=== PATIENT | female | born 1950 | race Caucasian/White ===

== ENCOUNTER 2025-06-07 22:43 | Observation (INO) | payer MEDICARE, OTHER, SELFPAY ==
[2025-06-07 19:58] VITALS: BP 90/57
[2025-06-07 20:23] LABS: Hematocrit 35.1 % (37.0-47.0); Hemoglobin 11.9 g/dL (12.0-16.0); Mean Corp Hgb Conc. 33.9 g/dL (33.0-37.0); Mean Corpuscular Volume 95.1 fL (81.0-99.0); Nucleated Red Blood Cells % 0 %; Platelet Count 242 10^3/uL (130-400); Red Cell Dist. Width 14.2 % (11.5-14.5)
[2025-06-07 20:33] LABS: INR 1.34; PT 16.8 Sec (11.4-14.6)
[2025-06-07 20:34] LABS: APTT 30.9 Sec (23.4-35.0)
[2025-06-07 20:44] LABS: ALT (SGPT) 36 U/L (0-35); AST (SGOT) 64 U/L (14-36); Albumin 4.0 g/dl (3.5-5.0); Alkaline Phosphatase 71 U/L (38-126); Blood Urea Nitrogen 20 mg/dl (7-17); Calcium 8.8 mg/dl (8.4-10.2); Carbon Dioxide 24 mmol/L (22-30); Chloride 106 mmol/L (98-107); Glucose 172 mg/dl (70-99); Potassium 4.2 mmol/L (3.5-5.1); Sodium 136 mmol/L (135-145); Total Protein 6.9 g/dl (6.3-8.2); eGFR 47.21
[2025-06-07 20:52] VITALS: BP 114/76
[2025-06-07 21:00] VITALS: BP 101/75
[2025-06-07 21:01] LABS: Troponin I 7.850 ng/ml
--- NOTE | 2025-06-07 21:12 | ED.GENMED ---
History of Present Illness
General
Chief Complaint: Heart Rate Problem
Time Seen by Provider: 06/07/25 21:01
History of Present Illness
History of Present Illness:
Patient is a 75-year-old female with a history of atrial fibrillation status post ablation yesterday who presents to the emergency department with tachycardia and palpitations. Symptoms have resolved at the time of my evaluation. Patient states
she is feeling better and denies any symptoms currently.
Phy Exam
Physical Exam
Physical Exam:
GENERAL APPEARANCE: NAD, well developed/ well nourished
EYES lids/conjunctiva normal
EARS/NOSE/THROAT Mucous membranes moist, uvula midline without oral pharyngeal erythema, exudate or swelling
HEAD/NECK normocephalic atraumatic, neck is supple.
RESPIRATORY respiratory effort normal, speaks in full sentences, no accessory muscle use. Lungs clear to auscultation without rhonchi, wheezes, rales
CARDIAC Regular rate and rhythm, no edema.
ABDOMINAL Soft, ND/NT.
MUSCLES/EXTREMITIES No abnormal range of motion, no swelling.
SKIN Warm, pink and dry. No rashes
NEUROLOGICAL Speech is clear and appropriate. Normal level of consciousness. 5/5 strength in all extremities.
PSYCH Normal mood and affect. Judgement/competence is appropriate
Course
Orders/Labs/Results
Orders:
Orders
06/07/25 19:56
EKG [Electrocardiogram (*1)] Urgent
Reason for Study: Chest Pain
EKG- Treatment ONCE
06/07/25 20:14
Complete Blood Count/With Diff Urgent
Comprehensive Metabolic Panel Urgent
PT/INR [Prothrombin Time] Urgent
Is patient on Coumadin/Warfarin?: No
Comment: xarelto
PTT Urgent
Troponin I Urgent
06/07/25 21:37
CR Chest - 2 Views Urgent
Comment:
Reason For Exam: cp
06/07/25 22:34
Admit/Transfer Patient As Directed
Co-Sign Provider:
Level of Care: Observation services
Assign to:: Telemetry
Physician / Group: evon burr
Diagnosis: afib with rvr, hypotension renal insuff, transaminitis
Reason for Telemetry: Arrhythmia
Date to Stop Telemetry: 06/10/25
Time to Stop Telemetry: 11:00
Reason for Hospitalization: afib with rvr, hypotension renal insuff, transaminitis
Code Status As Directed
Resuscitation Status: Full Code
06/07/25 22:36
PRN Pain Medication Management As Directed
May give lesser potent ordered pain med per pt: Yes
preference::
Protocol:: Medication orders for pain may be administered in a
manner that supports deferring to patient preference
when the pt is:
- Requesting an ordered lesser potent pain medication.
Least to most potent pain medications are defined
as: acetaminophen < NSAID < tramadol < opioids
(morphine, oxycodone, hydromorphone).
- Requesting a lesser dose of the same medication IF
ORDERED.
- Requesting a less intrusive route of administration
if both routes are prescribed by the provider (PO <
IV).
06/07/25 22:44
CARDIOLOGY CONSULT Routine
Consulting Provider: Louis Moreno
Was physician already notified: No
Reason for consult: afib s/p ablation [place]
Consult Notification Routine
Specialty to Notify: Cardiology
06/10/25 11:00
DC Protocol for Telemetry ONCE
Abnormal Lab Results
06/07/25
20:14
WBC 11.0 H 10^3/uL
(4.8-10.8)
RBC 3.69 L 10^6/uL
(4.20-5.40)
Hgb 11.9 L g/dL
(12.0-16.0)
Hct 35.1 L %
(37.0-47.0)
MCH 32.2 H pg
(27.0-31.0)
MPV 10.9 H fL
(7.4-10.4)
Abs Immat Gran (auto) 0.1 H 10^3/uL
(0-0.05)
Absolute Neuts (auto) 8.2 H 10^3/uL
(1.4-6.5)
Absolute Monos (auto) 0.8 H 10^3/uL
(0.1-0.6)
Lymphocytes % 17.7 L %
(20.5-51.1)
PT 16.8 H Sec
(11.4-14.6)
BUN 20 H mg/dl
(7-17)
Creatinine 1.2 H mg/dL
(0.6-1.0)
Glucose 172 H mg/dl
(70-99)
Total Bilirubin 1.4 H mg/dl
(0.2-1.3)
AST 64 H U/L
(14-36)
ALT 36 H U/L
(0-35)
Troponin I 7.850 H* ng/ml
06/07/25 20:14
06/07/25 20:14
Vital Signs
Initial and Last Documented VS:
Initial Vital Signs
Temp Pulse Resp BP Pulse Ox
98 F 163 16 90/57 95
06/07/25 19:58 06/07/25 19:58 06/07/25 19:58 06/07/25 19:58 06/07/25 19:58
Last Documented Vital Signs
Temp Pulse Resp BP Pulse Ox
98 F 77 24 114/76 95
06/07/25 19:58 06/07/25 20:53 06/07/25 20:53 06/07/25 20:52 06/07/25 21:12
*Pulse Oximetry
SaO2: 95
Oxygen Mode of Delivery: Room air
Patient hypoxic: no
*Critical Care Note
Total Time (30-74mins, 75-104mins- exclusive of procedures): Not Applicable
ED Attending Note
ED Attending Note
ED Attending Note:
Discussed with Dr. Dooley from [facility] commercial center manager. Patient with recurrence of afib which is frequently seen after ablation. She has now converted to sinus rhythm. however, her troponin is grossly elevated to 7.850. She has not ischemic
chest pain currenlt.y She is on xarelto. This elevation could be 2/2 to instrumentation vs rate related demand. Dr. Dooley recommends trending troponin, repeat echo. Will keep for observation
-
Portions of this chart may have been created with voice recognition software.� Occasional wrong word or��sound alike� substitutions may have occurred due to the inherent limitations of voice recognition software.
Discharge Plan
Departure
Patient Disposition: Admit
Date of Disposition: 06/07/25
Time of Disposition: 21:42
Presentation/result/management discussed w/ accepting MD/DO: Hospitalist
Discharge Problem:
Atrial fibrillation, Elevated troponin
Interventions
Interventions:
*Risk Screen - Suicide Last Done: 06/07/25 20:04
*General Assessment Last Done: 06/07/25 21:10
*Neglect/Abuse Screening Last Done: 06/07/25 20:04
*ED- Fall Risk Assessment Last Done: 06/07/25 21:10
*ED COVID-19 Vaccine History Last Done: 06/07/25 20:50
*ED Influenza Vaccine History Last Done: 06/07/25 20:50
ED- Cardiac Assessment Last Done: 06/07/25 21:57
ED- Pulmonary Assessment Last Done: 06/07/25 21:57
--- NOTE | 2025-06-07 22:14 | HPS.HSE ---
Addendum entered and electronically signed by Krupa Murray MD 06/07/25 22:48:
This is an addendum to H&P written by Kay Israel on 06/07/2025. �Patient seen and examined independently with MEDICAL LAB TECHNICIAN.
75-year-old female past medical history of atrial fibrillation status post ablation yesterday on Xarelto, cardiomyopathy with normal ejection, restrictive lung disease, hypertension, prediabetes, glucoma, presenting with tachycardia and palpitations
and fatigue. �Patient underwent ablation at [facility] yesterday. �She typically gets hypotensive with atrial fibrillation. �She was given IV fluids before the procedure and antihypertensive medications and metoprolol were held. �After
the ablation she was told to take as needed Lasix.
She had chest pain before the ablation. �No chest pain currently.
Vital signs show initial blood pressure 90/57. �Heart rate of 163. �EKG showed atrial fibrillation.
Labs showed troponin 7.8. �Mild transaminitis. �Creatinine 1.2. �Leukocytosis of 11. �Hemoglobin 11.9.
Patient with atrial fibrillation with RVR after ablation for atrial fibrillation at [facility] yesterday. �Initially hypotensive but spontaneously resolved. �Troponin elevation likely secondary to recent ablation. �Trend troponins. �Check
echocardiogram. �Patient received Xarelto dose at 7 PM today. �Hold further Xarelto in case further interventions are necessary and heparin drip is required. �Cardiology consulted.
Patient with ELOY likely secondary to contrast received during ablation. Hold Spironolactone and Losartan.
Original Note:
Family Physician
-
Family Physician:
Chief Complaint
-
Fatigue, elevated heart rate
History of Present Illness
75-year-old Israeli-speaking female with her son present at bedside stating this evening she felt tired with heart racing around 4 PM she took her heart rate which was in the 160s and blood pressure was 90/60. Her son states symptoms persisted for
2 hours. He brought her to ER for evaluation on arrival heart rate was A-fib with RVR 137 bpm but she self converted. He denies any current chest pain. He states she had chest pain before her A-fib ablation. Her son reports when she is typically
in A-fib she becomes hypotensive when not in A-fib blood pressure normally around 138 systolic. She was given IV fluids yesterday after procedure given possible IV contrast for ablation. She was also given prescription for Lasix 20 mg if 3 to 5
pound weight gain.
Past medical history hypertension hyperlipidemia prediabetes A-fib, cardiomyopathy, glaucoma.
Medical History
Past Medical History
Past Medical History: Reports Other
Additional Past Medical History:
hypertension
hyperlipidemia
prediabetes
A-fib
cardiomyopathy
glaucoma
Past Surgical History: Reports Other
Additional Past Surgical History:
A-fib ablation 06/06/[address]25 [facility] [address]. Alas
Bladder sling repair 2017 for bladder prolapse
Laser glaucoma surgery
Social History
Tobacco: Non-smoker
Alcohol: None
Drug: None
Personal: Single
Living: With Family
Employment: Retired
Family History
Family History: Not pertinent
Allergies / Home Medications
Allergies reflects when Allergies were last updated in [facility].
Home Medications with original date entered in [facility]
Allergy/Medication List:
Allergies
Allergy/AdvReac Type Severity Reaction Status Date / Time
No Known Allergies Allergy Unverified 06/07/25 20:05
Home Medications
Oyster Shell Calcium 500 500 mg PO DAILY 06/07/25
albuterol sulfate 90 mcg/actuation aerosol inhaler inhalation 06/07/25
amlodipine 5 mg tablet 5 mg PO DAILY 06/07/25
furosemide 20 mg tablet 20 mg PO DIRECTED 06/07/25
metoprolol succinate 50 mg tablet,extended release 24 hr 50 mg PO DAILY 06/07/25
rivaroxaban 20 mg tablet (Xarelto) 20 mg PO DAILY@19 06/07/25
rosuvastatin 10 mg tablet 10 mg PO DAILY 06/07/25
spironolactone 25 mg tablet 25 mg PO DAILY 06/07/25
Review of Systems
-
History Source: Patient and Family (Son at bedside translating Israeli)
A 12 point ROS was completed and negative except as noted: Yes
Constitutional: Reports Fatigue; Denies Fever or Chills
EENT: Denies Sore Throat or Runny Nose
Respiratory: Denies Cough or Trouble Breathing
Cardiac: Reports Palpitations; Denies Chest Pain or Diaphoresis
Abdomen/GI: Denies Abdominal Pain, Nausea, Vomiting, Diarrhea, Constipated or Bloody Stools
: Denies Dysuria, Frequency, Flank Pain, Incontinence, Difficulty Voiding or Urgency
Musculoskeletal: Denies Joint Pain or Edema
Skin: Denies Itching or Rash
Neurological: Denies Dizzy or Headache
Endocrine: Reports No Symptoms
Hematologic/Lymphatic: Reports No Symptoms
Psych: Reports Calm
Physical Exam
Vital Signs
Vital Signs
Temp Pulse Resp BP Pulse Ox
98 F 77 24 114/76 95
06/07/25 19:58 06/07/25 20:53 06/07/25 20:53 06/07/25 20:52 06/07/25 21:12
Physical Exam
General: Conversant; No Fever or Chills
HEENT: NormoCephalic, Anicteric, Moist mucous membranes, PERRLA, [place] Conjunctivae and No Ptosis
Respiratory: Clear; No Wheezes, Rales or Rhonchi
Cardiac: S1/S2 and Regular Rhythm; No Murmur, Rub, Gallop or Peripheral Edema
GI: Soft, Non Tender, Non Distended, Normal Bowel Sounds and No Hepatosplenomegaly
Rectal: Deferred by Provider
Genito-urinary: Deferred by me
Musculoskeletal: No Clubbing, No Cyanosis and No Edema
Skin: Warm and Dry; No Rash
Neuro: AO x 3 (Patient speaking Israeli to son who is translating), No Motor Deficits, Cranial Nerves Intact and No Sensory Deficits; No Slurred Speech, Facial Droop, Tremors or Sedated
Psych: Calm
Laboratory Results
-
06/07/25 20:14
06/07/25 20:14
Laboratory Results
PT 16.8 Sec (11.4-14.6) H 06/07/25 20:14
INR 1.34 06/07/25 20:14
APTT 30.9 Sec (23.4-35.0) 06/07/25 20:14
Total Bilirubin 1.4 mg/dl (0.2-1.3) H 06/07/25 20:14
AST 64 U/L (14-36) H 06/07/25 20:14
ALT 36 U/L (0-35) H 06/07/25 20:14
Alkaline Phosphatase 71 U/L (38-126) 06/07/25 20:14
Troponin I 7.850 ng/ml H* 06/07/25 20:14
Impression/Plan
-
Impression/plan:
Admit to telemetry
#A-fib with RVR self corrected/history A-fib
History of cardiac ablation yesterday 06/06/[address]25 [facility] [address] Alicea
- Monitor on telemetry
-Patient on Xarelto took at 7 PM this evening 06/07/2025 will hold further Xarelto in case of repeat arrhythmia requiring needed procedure
-Check 2D echo
EKG A-fib 136 bpm
#Elevated troponin likely secondary to A-fib ablation yesterday 06/06/2025
Troponin 7.850 will trend
-Check 2D echo
#Reported cardiomyopathy
Obtain records from [facility]
#Acute leukocytosis likely reactive due to ablation yesterday
Afebrile, no shift
#Renal insufficiency
Creat 1.2 GFR 47.2
Follow BMP
-Hold losartan, spironolactone
#Transaminitis unclear
- Follow CMP
#Nonobstructive CAD
#Prediabetes
Blood sugar 172 check HgbA1c
#Normocytic anemia
Hgb 11.9, MCV 95.1
#Reactive airway disease
Continue albuterol as needed
#HTN
-Continue metoprolol ER 50 mg twice daily hold for SBP<110
-Hold losartan 100 mg daily
#HLD
Continue Crestor 10 mg daily
#Glaucoma
History of laser procedure
#History of bladder sling 2018 for bladder prolapse
DVT prophylaxis
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
Full code
[2025-06-07 23:09] VITALS: BP 104/69
[2025-06-08] VITALS: BP 106/66
[2025-06-08 01:00] VITALS: BP 111/73
--- NOTE | 2025-06-08 01:20 | PTCARENOTE ---
pt arrived from ED @ 0110; pt AOX3 and ambulated safely to the bed; pt Gabonese speaking - trash man services utilized; bed locked and in lowest position; call lund within reach; care ongoing.
[2025-06-08 01:21] VITALS: BP 111/73
[2025-06-08 01:30] VITALS: BMI 33.9
[2025-06-08 03:00] VITALS: BP 106/66
[2025-06-08 03:08] LABS: Troponin I 6.430 ng/ml
[2025-06-08 06:00] VITALS: BMI 33.7
[2025-06-08 06:21] LABS: Hematocrit 32.5 % (37.0-47.0); Hemoglobin 10.5 g/dL (12.0-16.0); Mean Corp Hgb Conc. 32.3 g/dL (33.0-37.0); Mean Corpuscular Volume 95.6 fL (81.0-99.0); Nucleated Red Blood Cells % 0 %; Platelet Count 208 10^3/uL (130-400); Red Cell Dist. Width 14.4 % (11.5-14.5)
[2025-06-08 06:39] LABS: ALT (SGPT) 34 U/L (0-35); AST (SGOT) 47 U/L (14-36); Albumin 3.8 g/dl (3.5-5.0); Alkaline Phosphatase 67 U/L (38-126); Blood Urea Nitrogen 17 mg/dl (7-17); Calcium 8.6 mg/dl (8.4-10.2); Carbon Dioxide 26 mmol/L (22-30); Chloride 108 mmol/L (98-107); Estimated Creatinine Clearance 58 ml/min; Glucose 114 mg/dl (70-99); Potassium 4.3 mmol/L (3.5-5.1); Sodium 137 mmol/L (135-145); Total Protein 6.2 g/dl (6.3-8.2); eGFR > 60.00
[2025-06-08 06:42] LABS: Troponin I 6.050 ng/ml
[2025-06-08 07:35] VITALS: BP 118/69
--- NOTE | 2025-06-08 07:36 | CON.CAR ---
Addendum entered and electronically signed by Paco Curtis MD 06/08/25 11:38:
I saw and examined the patient.
The Network And Threat Support Specialist's note was reviewed and I agree with the note.
Comment: Briefly, 75-year-old woman past medical history of paroxysmal atrial fibrillation who underwent PVI at [facility] earlier this week 06/06/2025. She developed rapid symptomatic atrial fibrillation 06/07/2025 and presented to
[facility] emergency department for evaluation.
Patient spontaneously converted from rapid A-fib to normal sinus rhythm and is currently maintaining sinus rhythm on review of telemetry
Would continue metoprolol for rate control
Xarelto for risk reduction of cardiac stroke
Of note troponin was elevated on admission and down trended 7.9�> 6.4�> 6.1
ECG without acute ischemic changes
Suspect nonischemic myocardial injury troponin elevation due to recent ablation
Not reporting any chest discomfort this morning
Plan to check transthoracic echocardiogram, if this is unremarkable would defer further workup to the outpatient setting with her primary heel stiffener
Rest per Idania Lopez
Original Note:
Consultation
Consultation Request
Date/Time Consultation Requested: 06/07/2025 at 2244
Date/Time Consultation Performed: 06/08/2025 at 0748
Requesting Provider: Dr. Jamil
Performing Provider: Dr. Porter
Reason for Consultation: Chest pain, rapid A-fib
Medical History
-
History of Present Illness:
Patient came to [facility] ER last night with chest pain and palpitations and was admitted with rapid A-fib and elevated troponin, cardiology is now consulted. I talked to the patient using language line strand and binder controller services and then separately I called
her son-in-law, Trey, who is an DYE HOUSE SUPERVISOR at the [employer] and we talked for 10 minutes and 18 seconds this morning. Patient was initially diagnosed with A-fib 06/2024 and had successful CV at that time and according to patient and son-in-law there
was no recurrence of A-fib until last month, 05/2025. Patient had another successful CV, but recurred with A-fib 3 days later and was referred for ablation that was performed on 06/06/2025. Ablation was uncomplicated and patient was discharged to
home on the same day, patient has been staying with family instead of on her own and family lives closer to [facility] and so patient came here yesterday when she had palpitations and chest pain. Patient son-in-law could palpate a rapid and irregular HR,
but initial ECG in the ER was SR. Patient then recurred with rapid A-fib that was captured on ECG and again spontaneously converted to SR. I reconciled the med list with the patient's son-in-law by phone and she is actually taking Toprol-XL 50 mg
BID and not daily as it is listed. Son-in-law also reports that patient had recurrence of A-fib that seem to happen around the time of the Toprol-XL dose being lowered to 25 mg daily. Patient has had BP medication adjustments through PCP as well
including most recently the addition of amlodipine and then following the development of LE edema spironolactone was added. BP is now 106/66.
PMH:
Paroxysmal A-fib with RVR
s/p successful CV 06/2024
s/p successful CV, but followed by rapid recurrence of A-fib 05/2025
s/p PVI 06/06/2025
Chronic Xarelto OAC
HTN
Past Medical History
Past Medical History: Other (in HPI)
Past Surgical History: Cardiac (PVI at [facility] 06/06/25,) and Urological (bladder sling)
Social History
Tobacco: Non-Smoker
Alcohol: None
Drug: None
Living: Alone (Usually lives independently, but currently staying with family while she recovers from PVI)
Family History
Family History: Diabetes
Allergies / Home Medications
Allergy/AdvReac Type Severity Reaction Status Date / Time
No Known Allergies Allergy Unverified 06/07/25 20:05
�Medication �Instructions �Recorded �Confirmed �Type
Oyster Shell Calcium 500 500 mg PO DAILY 06/07/25 06/07/25 History
albuterol sulfate 90 mcg/actuation inhalation 06/07/25 History
aerosol inhaler
amlodipine 5 mg tablet 5 mg PO DAILY 06/07/25 06/07/25 History
furosemide 20 mg tablet 20 mg PO DIRECTED 06/07/25 06/07/25 History
losartan 100 mg tablet 100 mg PO DAILY 06/07/25 06/07/25 History
metoprolol succinate 50 mg 50 mg PO DAILY 06/07/25 06/07/25 History
tablet,extended release 24 hr
rivaroxaban 20 mg tablet (Xarelto) 20 mg PO DAILY@19 06/07/25 06/07/25 History
rosuvastatin 10 mg tablet 10 mg PO DAILY 06/07/25 06/07/25 History
spironolactone 25 mg tablet 25 mg PO DAILY 06/07/25 06/07/25 History
Review of Systems
-
History Source: Patient and Family (Son-in-law, Trey, by phone)
All other systems: Negative unless noted
Physical Exam
Vital Signs
Temp Pulse Resp BP Pulse Ox
98.5 F 62 18 106/66 96
06/08/25 03:00 06/08/25 03:00 06/08/25 03:00 06/08/25 03:00 06/08/25 03:00
GEN: NAD. AAOx3 using [employer] services
HEENT: EOMI, MMM
LUNGS: RA. CTA B/L, no wheeze
CV: SR on tele. Reg, S1/S2, no murmur
ABD: ND
EXT: No edema B/L LE
NEURO: Gross non-focal
SKIN: No rash
Lab Results
06/08/25 06:04
06/08/25 06:04
Troponin I 6.050 ng/ml H* 06/08/25 06:04
Impression / Plan
-
PCP: Craig Garcia
Director Of Design: Dr. Alicea, but transitioning to Dr. Almanza at [place]
Impression:
Admitted with rapid Afib and chest pain 06/07/25
Chest pain
Elevated troponin
Paroxysmal A-fib with RVR
s/p successful CV 06/2024
s/p successful CV, but followed by rapid recurrence of A-fib 05/2025
s/p PVI 06/06/2025
Chronic Xarelto OAC
HTN
Echo 06/08/2025: Study pending
Plan:
-Patient came to [facility] ER last night with chest pain and palpitations and was admitted with rapid A-fib and elevated troponin, cardiology is now consulted. I talked to the patient using language line strand and binder controller services and then separately I called
her son-in-law, Trey, who is an DYE HOUSE SUPERVISOR at the [place] system and we talked for 10 minutes and 18 seconds this morning. Patient was initially diagnosed with A-fib 06/2024 and had successful CV at that time and according to patient and son-in-law there
was no recurrence of A-fib until last month, 05/2025. Patient had another successful CV, but recurred with A-fib 3 days later and was referred for ablation that was performed on 06/06/2025. Ablation was uncomplicated and patient was discharged to
home on the same day, patient has been staying with family instead of on her own and family lives closer to [facility] and so patient came here yesterday when she had palpitations and chest pain. Patient son-in-law could palpate a rapid and irregular HR,
but initial ECG in the ER was SR. Patient then recurred with rapid A-fib that was captured on ECG and again spontaneously converted to SR. I reconciled the med list with the patient's son-in-law by phone and she is actually taking Toprol-XL 50 mg
BID and not daily as it is listed. Son-in-law also reports that patient had recurrence of A-fib that seem to happen around the time of the Toprol-XL dose being lowered to 25 mg daily. Patient has had BP medication adjustments through PCP as well
including most recently the addition of amlodipine and then following the development of LE edema spironolactone was added. BP is now 106/66.
-ECG x 3 since admission were all reviewed by me, initially SR, then A-fib with RVR and now back in SR. QTc 423 ms in SR on ECG 06/08/2025. Telemetry also reviewed by me and appears to be SR 06/08/2025
-Patient experiencing recurrence of paroxysmal A-fib with RVR following PVI at [facility] 06/06/2025. Following spontaneous conversion to SR in the ER overnight, patient has remained in SR.
-Talked with patient's son-in-law who is an DYE HOUSE SUPERVISOR at [place] and we made a plan to continue his usual dose of Toprol XL 50 mg BID, orders placed by me.
-Patient is scheduled to be seen in Dr. Beth's office in 3 weeks. If patient has recurrence of atrial arrhythmia in that time there could be consideration for addition of AAD. QTc was 423 ms on ECG this morning.
-Outpatient dose of Xarelto 20 mg daily has been continued, orders placed by me.
-BP 106/66. Apparently BP was higher with PCP office visit within the last 1 to 2 months and amlodipine 5 mg daily was added. Patient then had increased LE edema and was started on spironolactone 25 mg daily. BP has now been lower.
-Reviewed with son-in-law and we will stop amlodipine and spironolactone, orders placed by me.
-Outpatient dose of losartan decreased to 50 mg daily with a hold parameter for SBP less than 110, orders placed by me.
-Lasix 20 mg daily is a PRN order for weight gain of 3 lbs in a day that was ordered by cardiology following her ablation on Friday.
-Check echo in light of chest pain and elevated troponin
-Initial troponin 7.85 and trending down thereafter, this is likely related to ablation from Friday.
-Patient had chest pain in the setting of rapid A-fib which apparently is similar to her episodes from 06/2024 and last month. No ischemic changes on ECG.
-Pending echo the patient can be discharged to home later today and family is in agreement with that plan.
[2025-06-08 08:52] LABS: Glycohemoglobin (HgbA1c) 6.8 % (4.0-5.6)
--- NOTE | 2025-06-08 10:27 | W.PN.HOSP.TC ---
Today's Communication/Plan
-
See plan
Assessment / Plan
Assessment / Plan
Impression
A-fib with RVR, symptomatic upon presentation.
Non-NH troponin elevation
Transient hypotension.
Untreated diabetes.
Plan:
Atrial fibrillation with rapid ventricular response.
Status post cardioversions x 2, status post ablation in outside hospital on 06/06
Presents in symptomatic A-fib with RVR and transient hypotension.
Back to sinus/sinus bradycardia.
Currently off beta-adonis.
Reports not taking amlodipine, losartan, diuretics given marginal BP.
Noted with elevated troponin remains flat status post ablation
TSH within normal
Echocardiogram pending
Cardiology consult
Anticoagulation with Xarelto, last dose on 06/07.
Diabetes.
Hemoglobin A1c 6.8.
Not on any glucose lowering therapy prior to presentation
Monitor blood glucose while in the hospital.
Consider initiation of metformin or SGLT2 inhibitor
Anticipated Discharge: Within 24 hours
Subjective/Interval History
-
Date of Service: June 08, 2025
Objective Data
-
Labs:
Laboratory Results
06/08/25
06:04
WBC 8.3
Hgb 10.5 L
Hct 32.5 L
Plt Count 208
Sodium 137
Potassium 4.3
Chloride 108 H
Carbon Dioxide 26
BUN 17
Creatinine 0.9
Glucose 114 H
Calcium 8.6
Total Bilirubin 1.1
AST 47 H
ALT 34
Alkaline Phosphatase 67
Vital Signs:
Vital Signs
Temp Pulse Resp BP Pulse Ox
98.5 F 62 18 106/66 95
06/08/25 03:00 06/08/25 03:00 06/08/25 03:00 06/08/25 03:00 06/08/25 09:45
I&O
06/07/25 06/08/25 06/09/25
06:59 06:59 06:59
Intake Total 960 / 960
Balance 960 / 960
Physical Exam
-
General: Well Developed and No Apparent Distress
HEENT: Normocephalic, Atraumatic and Moist Mucous Membranes
Respiratory: Clear to Auscultation
Cardiac: Regular Rhythm and S1/S2; Negative Murmur, Rub or Gallop
GI: Soft, Nontender, Nondistended and Normal Bowel Sounds; Negative Organomegaly
Rectal: Deferred by Provider
Musculoskeletal: No Clubbing, No Cyanosis and No Edema
Skin: Negative Rash
Neuro: Nonfocal/Grossly Intact
[2025-06-08 11:35] VITALS: BP 129/73
[2025-06-08 11:52] LABS: Glucose - Point of Care 163 mg/dl (70-99)
[2025-06-08] MEDS: NOVOLOG FLEXPEN-LOW RESISTANCE 1 UNITS SC (12:06)
[2025-06-08] MEDS: TOPROL XL 50 MG PO (12:07)
[2025-06-08 16:19] LABS: Glucose - Point of Care 146 mg/dl (70-99)
--- NOTE | 2025-06-08 16:20 | W.DS.TRANS ---
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
-
Discharge Instructions:
Discharge Diagnosis/Procedures Chest pain, elevated troponin, recurrence of
paroxysmal atrial fibrillation following
ablation 06/06/2025
Diet Low Sodium
Activity As tolerated
Driving Restrictions As prior to admission
Bathing Restrictions OK to Shower
Specialty Instructions Weigh Daily
Instructions:
Stand-Alone Forms:
Changes to Home Medications: Yes
Discharge Medications:
DC Medications w/original date entered in [facility]
Oyster Shell Calcium 500 500 mg PO DAILY Supplement 06/07/25
albuterol sulfate 90 mcg/actuation aerosol inhaler inhalation Lung/Breathing Issues 06/07/25
furosemide 20 mg tablet 20 mg PO DIRECTED Fluid Retention/Swelling 06/07/25
rivaroxaban 20 mg tablet (Xarelto) 20 mg PO DAILY@19 Blood Clot Prevention/Tx 06/07/25
rosuvastatin 10 mg tablet 10 mg PO DAILY High Cholesterol 06/07/25
losartan 50 mg tablet 50 mg PO DAILY Blood pressure #30 tabs 06/08/25
metoprolol succinate 50 mg tablet,extended release 24 hr 50 mg PO BID Arrhythmia #60 tabs 06/08/25
Home Medication Changes
Losartan decreased.
Toprol Increased
Pending Results: No
[2025-06-08] MEDS: NOVOLOG FLEXPEN-LOW RESISTANCE SC (16:26)
[2025-06-08] MEDS: XARELTO 20 MG PO (17:02)
== END 2025-06-08 17:45 | disposition home or self-care (01) ==
LOC: 2 SOUTH 22:43
PROVIDERS: Clinical Nurse Specialist Family Health; Emergency Medicine; ADMITTING PHYSICIAN Hospitalist; ATTENDING PHYSICIAN Internal Medicine; CONSULT PHYSICIAN Internal Medicine Cardiovascular Disease; EMERGENCY PHYSICIAN Emergency Medicine
DX: I48.0 Paroxysmal atrial fibrillation (principal); R00.2 Palpitations; R00.0 Tachycardia, unspecified; R07.9 Chest pain, unspecified; E11.9 Type 2 diabetes mellitus without complications; I95.9 Hypotension, unspecified; R74.01 Elevation of levels of liver transaminase levels; R79.89 Other specified abnormal findings of blood chemistry; I42.9 Cardiomyopathy, unspecified; I10 Essential (primary) hypertension; E78.5 Hyperlipidemia, unspecified; R00.1 Bradycardia, unspecified; N28.9 Disorder of kidney and ureter, unspecified; J90 Pleural effusion, not elsewhere classified; J98.11 Atelectasis; I70.0 Atherosclerosis of aorta; I08.3 Combined rheumatic disorders of mitral, aortic and tricuspid valves; I27.20 Pulmonary hypertension, unspecified; Q21.12 Patent foramen ovale; I25.2 Old myocardial infarction; D72.829 Elevated white blood cell count, unspecified; I25.10 Atherosclerotic heart disease of native coronary artery without angina pectoris; D64.9 Anemia, unspecified; J45.909 Unspecified asthma, uncomplicated; Z79.899 Other long term (current) drug therapy; Z83.3 Family history of diabetes mellitus; Z98.890 Other specified postprocedural states; Z79.01 Long term (current) use of anticoagulants
CPT/HCPCS: 71046; 80053; 82962; 83036; 84443; 84484; 85025; 85610; 85730; 93005; 93306; 99285

== ENCOUNTER 2025-08-04 05:16 | Inpatient (IN) | payer MEDICARE, OTHER, SELFPAY ==
[2025-08-03] VITALS (11 sets, daily range): BP systolic 114–138; BP diastolic 81–104; BMI 32.9
[2025-08-03] MEDS: NSS 1000 IV (22:05)
[2025-08-03] MEDS: ADENOCARD 6 MG IV (22:05)
[2025-08-03 22:15] LABS: Hematocrit 42.1 % (37.0-47.0); Hemoglobin 14.2 g/dL (12.0-16.0); Mean Corp Hgb Conc. 33.7 g/dL (33.0-37.0); Mean Corpuscular Volume 93.8 fL (81.0-99.0); Nucleated Red Blood Cells % 0 %; Platelet Count 277 10^3/uL (130-400); Red Cell Dist. Width 13.5 % (11.5-14.5)
[2025-08-03 22:41] LABS: ALT (SGPT) 19 U/L (0-35); AST (SGOT) 20 U/L (14-36); Albumin 4.6 g/dl (3.5-5.0); Alkaline Phosphatase 86 U/L (38-126); Blood Urea Nitrogen 22 mg/dl (7-17); Calcium 9.9 mg/dl (8.4-10.2); Carbon Dioxide 25 mmol/L (22-30); Chloride 103 mmol/L (98-107); Estimated Creatinine Clearance 54 ml/min; Glucose 126 mg/dl (70-99); Magnesium 2.1 mg/dl (1.6-2.3); Potassium 4.2 mmol/L (3.5-5.1); Sodium 136 mmol/L (135-145); Total Protein 8.0 g/dl (6.3-8.2); eGFR 58.75
[2025-08-03] MEDS: CARDIZEM 10 MG IV (22:43)
[2025-08-03] MEDS: CARDIZEM 125 IV (22:44)
[2025-08-04] VITALS (27 sets, daily range): BP systolic 102–150; BP diastolic 66–119; BMI 32.9; BMI 32.0
--- NOTE | 2025-08-04 02:08 | ED.GENMED ---
History of Present Illness
General
Chief Complaint: Heart Rate Problem
Source: patient and family
Time Seen by Provider: 08/03/25 21:56
History of Present Illness
History of Present Illness:
Note:
CHIEF COMPLAINT(S)
Shortness of breath since this morning.
HISTORY OF PRESENT ILLNESS
The patient is a 75-year-old female with a significant past medical history of atrial fibrillation (AF) who presents with shortness of breath that began this morning. Her daughter reports that the patient experienced similar symptoms following an
ablation procedure performed about one and a half months ago. After the ablation, she experienced episodes of supraventricular tachycardia (SVT) and was brought to the hospital the next day.
The patient was treated twice in the past for AF with cardioversion, and an ablation was performed by Dr. Vargas at [facility]. The daughter confirms that the patient has not experienced any chest pain but has been using her albuterol
inhaler due to a recent cold, characterized by nasal congestion without a fever. This cold reportedly triggers episodes similar to previous AF occurrences, as experienced last June. This morning, the patient used the albuterol inhaler four times
to manage her symptoms. The patient is currently on Metoprolol (50 mg in the morning and afternoon) and Losartan.
PAST MEDICAL AND SURGICAL HISTORY
- Atrial fibrillation
- Hypertension
- Type 2 Diabetes Mellitus
ADDITIONAL HISTORY OBTAINED FROM SOURCES OTHER THAN THE PATIENT
Per the patients daughter, the patient experienced SVT the day after her ablation procedure and required medical intervention. She also reports the patient used albuterol due to nasal congestion.
CHRONIC MEDICAL CONDITIONS SIGNIFICANTLY AFFECTING CARE
- Hypertension
- Type 2 Diabetes Mellitus
- Atrial fibrillation requiring cardioversion and ablation
MEDICATIONS
- Metoprolol 50 mg, morning and afternoon
- Losartan
- Spironolactone
- Albuterol (as needed for episodes of shortness of breath)
REVIEW OF SYSTEMS
- Respiratory: Shortness of breath since this morning, occasional use of albuterol inhaler
- Cardiovascular: History of atrial fibrillation and ablation
- Neurological: No focal neurological deficits observed
PHYSICAL EXAM
General: Alert, no acute distress.
Skin: Warm, dry.
Head: Normocephalic, atraumatic.
Neck: Supple, trachea midline.
Eyes, Ears, Nose, and Throat: Oral mucosa moist.
Cardiovascular: Normal peripheral perfusion, no edema.
Respiratory: Respirations are non-labored.
Gastrointestinal: Abdomen nondistended.
Back: Normal range of motion, normal alignment.
Musculoskeletal: Normal ROM, normal strength.
Neurological: Alert and oriented to person, place, time, and situation, no focal neurological deficit observed.
Psychiatric: Cooperative, appropriate mood & affect.
PROBLEM LIST
Acute:
- Shortness of breath
- Recent cold with nasal congestion
Chronic:
- Atrial fibrillation
- Hypertension
- Type 2 Diabetes Mellitus
PLAN
- Review and continue current medications including Metoprolol and Losartan.
- Monitor use of albuterol for symptom management.
- Obtain external records to review the past ablation and any related complications.
- Consider further cardiac evaluation to assess current rhythm status and potential need for intervention.
- Encourage follow-up with [employer] supervisor Dr. Vargas for ongoing management of atrial fibrillation.
DIFFERENTIAL DIAGNOSIS
The Differential Diagnosis includes, in no particular order and is not limited to:
1. Atrial fibrillation with rapid ventricular response
2. Supraventricular tachycardia
3. Congestive heart failure exacerbation
4. Chronic obstructive pulmonary disease exacerbation
5. Upper respiratory infection
6. Myocardial ischemia
7. Pulmonary embolism
8. Sinus Tachycardia
9. Medication-induced side effects
10. Anxiety-induced hyperventilation
EKG
My independent EKG interpretation is:
- Time of EKG: Not specified
- Rhythm: Supraventricular tachycardia
- Heart rate: 171 bpm
- [place]: Left axis deviation
- Abnormalities observed: Non-specific ST-T wave changes (rate-related)
Disposition:
SUMMARY OF ENCOUNTER
The patient presented to the emergency department with a narrow complex tachycardia, which was identified as supraventricular tachycardia (SVT) versus atrial flutter. Initial treatment was with adenosine, and the rhythm appeared to be atrial
flutter. Subsequently, diltiazem was administered, with improvement in the heart rate, although the patient remained in atrial flutter. A diltiazem drip was continued for rate control. Electrical cardioversion was offered in the emergency
department; however, the patient and her daughter opted to wait. The patient is to be admitted for cardiology evaluation and possible cardioversion, either electrical or chemical, if necessary. Suspect atrial flutter related to her upper
respiratory infection and use of albuterol
DISPOSITION
Admit
INDEPENDENT REVIEW OF LABS AND INTERPRETATION OF TESTS
- My independent review of CBC indicates it is unremarkable.
- My independent review of CMP is unremarkable.
MEDICATION RECONCILIATION
Diltiazem drip was administered for rate control.
MEDICAL DECISION MAKING
- Number and Complexity of Problems Addressed: Chronic conditions affecting care include atrial fibrillation, hypertension, and type 2 diabetes mellitus. DDx includes atrial fibrillation with rapid ventricular response, supraventricular tachycardia,
and upper respiratory infection.
- Data:
Category 1:
- My independent interpretation of the EKG shows atrial flutter.
Category 2:
- Clinical information was obtained from an independent historian.
- Risk: Admission for continued IV rate control, and consideration for cardioversion due to persistent atrial flutter.
DIAGNOSIS
- Atrial flutter (ICD-10: I48.92)
- Narrow complex tachycardia (ICD-10: R00.0)
Phy Exam
Physical Exam
Physical Exam:
.
Course
Orders/Labs/Results
Orders:
Orders
08/03/25 21:42
Electrocardiogram (*1) Urgent
Reason for Study: Atrial Fibrillation
EKG- Treatment ONCE
08/03/25 22:00
0.9% Sodium Chloride 1000 ml [Nss] 1,000 ml IV BOLUS
Adenosine [Adenocard] 6 mg IV NOW STA
08/03/25 22:03
Complete Blood Count/With Diff Urgent
Comprehensive Metabolic Panel Urgent
Magnesium Urgent
08/03/25 22:07
Adenosine [Adenocard] 30 mg .ROUTE .STK-MED ONE
08/03/25 22:15
ECG [Electrocardiogram (*1)] Urgent
Reason for Study: Bradycardia / Tachycardia
EKG- Treatment ONCE
08/03/25 22:21
Diltiazem 125 mg/125 ml Nss [Cardizem] 125 mg in 125 ml IV NOW
Initial dose in mg/hr, then titrate:: 5
Titrate to keep:: Heart rate 80-100 bpm
Titrate by mg/hr:: 5 mg/hr
Frequency of titrations (minutes):: 15
Maximum dose in mg/hr:: 15
Diltiazem HCl [Cardizem] 10 mg IV NOW STA
08/03/25 22:56
Electrocardiogram (*1) Urgent
Reason for Study: Palpitations
EKG- Treatment ONCE
08/04/25 00:32
Electrocardiogram (*1) Urgent
Reason for Study: Palpitations
EKG- Treatment ONCE
Abnormal Lab Results
08/03/25
22:03
WBC 12.1 H 10^3/uL
(4.8-10.8)
MCH 31.6 H pg
(27.0-31.0)
MPV 10.6 H fL
(7.4-10.4)
Abs Immat Gran (auto) 0.1 H 10^3/uL
(0-0.05)
Absolute Neuts (auto) 8.7 H 10^3/uL
(1.4-6.5)
Absolute Monos (auto) 0.9 H 10^3/uL
(0.1-0.6)
Immature Gran % 0.6 H %
(0-0.5)
Lymphocytes % 16.8 L %
(20.5-51.1)
BUN 22 H mg/dl
(7-17)
Glucose 126 H mg/dl
(70-99)
08/03/25 22:03
08/03/25 22:03
Vital Signs
Initial and Last Documented VS:
Initial Vital Signs
Temp Pulse Resp BP Pulse Ox
98.1 F 173 20 122/81 93
08/03/25 21:51 08/03/25 21:51 08/03/25 21:51 08/03/25 21:51 08/03/25 21:51
Last Documented Vital Signs
Temp Pulse Resp BP Pulse Ox
98.1 F 108 22 128/88 94
08/03/25 21:51 08/03/25 23:00 08/03/25 22:57 08/03/25 23:00 08/03/25 22:45
*Pulse Oximetry
SaO2: 94
Oxygen Mode of Delivery: Room air
Patient hypoxic: no
*Critical Care Note
Total Time (30-74mins, 75-104mins- exclusive of procedures): 30 minutes
ED Attending Note
-
Portions of this chart may have been created with voice recognition software.� Occasional wrong word or��sound alike� substitutions may have occurred due to the inherent limitations of voice recognition software.
Discharge Plan
Departure
Patient Disposition: Admit
Date of Disposition: 08/04/25
Time of Disposition: 02:09
Admit to: Telemetry
Presentation/result/management discussed w/ accepting MD/DO: Hospitalist
Discharge Problem:
Atrial flutter with rapid ventricular response
Prescriptions:
No Action
furosemide 20 mg tablet
20 mg PO DIRECTED
Rx Instructions:
May take if 3 to 5 pound weight gain
albuterol sulfate 90 mcg/actuation HFA aerosol inhaler
INHALATION
rosuvastatin 10 mg tablet
10 mg PO DAILY
Xarelto 20 mg tablet
20 mg PO DAILY@19
Oyster Shell Calcium 500
500 mg PO DAILY
losartan 50 mg Tablet
50 mg PO DAILY Qty: 30 0RF
metoprolol succinate 50 mg Tablet Extended Release 24 Hr
50 mg PO BID Qty: 60 0RF
Referrals:
Luis M Kaur CRNP [Family Provider, General]
Interventions
Interventions:
*Risk Screen - Suicide Last Done: 08/03/25 21:51
*General Assessment Last Done: 08/03/25 21:51
*ED COVID-19 Vaccine History Last Done: 08/03/25 22:00
*ED Influenza Vaccine History Last Done: 08/03/25 22:00
[facility] Fall Risk Assessment Tool Last Done: 08/03/25 22:00
ED- Cardiac Assessment Last Done: 08/03/25 22:00
ED- Pulmonary Assessment Last Done: 08/03/25 22:00
Discharge Date and Time
Print Language: Gambian
[2025-08-04 02:52] LABS: COVID-19 Antigen Negative (Negative)
--- NOTE | 2025-08-04 03:35 | HPS.HSE ---
Family Physician
-
Family Physician: SIMEON Teague
Chief Complaint
-
Fatigue. Tachycardia
History of Present Illness
Patient is a 75y F with PMH significant for A-Fib s/p ablation and DM-II who presents to ED complaining of weakness and elevated heart rates. History obtained from patient using [employer] services to interpret.
Patient states that she felt very fatigued this AM. She attempted to check her BP but her automated cuff would not register. She checked her pulse and notes that it was markedly elevated at 170-180. Her symptoms persisted throughout the day and
she presented to the ED for further evaluation. Patient complains of SOB associated with her symptoms. She tried using her albuterol inhaler, but noted that this only made her feel worse.
She denies any associated chest pain. No N/V. No fevers / chills.
Patient underwent DCCV x 2 and then PVI ablation at 06/06/25.
She was admitted here at the following day with SVT / breakthrough A-Fib.
Patient notes that she has had no recurrent issues since that time. She has been compliant with all medications including Xarelto.
Medical History
Past Medical History
Past Medical History: Reports Other
Additional Past Medical History:
Hypertension
Paroxysmal Atrial Fibrillation
Glaucoma
DM-II, Diet-Controlled
Past Surgical History: Reports Other
Additional Past Surgical History:
DCCV x 2
A-Fib ablation 06/06/2025 Dr. Alas
Bladder sling repair 2017 for bladder prolapse
Laser glaucoma surgery
Social History
Tobacco: Non-smoker
Alcohol: None
Drug: None
Personal: Single
Living: With Family
Employment: Retired
Family History
Family History: Not pertinent
Allergies / Home Medications
Allergies reflects when Allergies were last updated in [facility].
Home Medications with original date entered in [facility]
Allergy/Medication List:
Allergies
Allergy/AdvReac Type Severity Reaction Status Date / Time
No Known Allergies Allergy Unverified 08/03/25 21:52
Home Medications
Oyster Shell Calcium 500 500 mg PO DAILY Supplement 06/07/25
albuterol sulfate 90 mcg/actuation aerosol inhaler 1 inh inhalation [id number] PRN SOB 06/07/25
furosemide 20 mg tablet 20 mg PO DIRECTED Fluid Retention/Swelling 06/07/25
rivaroxaban 20 mg tablet (Xarelto) 20 mg PO DAILY@19 Blood Clot Prevention/Tx 06/07/25
rosuvastatin 10 mg tablet 10 mg PO DAILY High Cholesterol 06/07/25
losartan 50 mg tablet 50 mg PO DAILY Blood pressure #30 tabs 06/08/25
metoprolol succinate 50 mg tablet,extended release 24 hr 50 mg PO BID Arrhythmia #60 tabs 06/08/25
Review of Systems
-
History Source: Patient
A 12 point ROS was completed and negative except as noted: Yes
Constitutional: Reports Fatigue; Denies Fever or Chills
Respiratory: Reports Cough and Trouble Breathing; Denies Hemoptysis
Cardiac: Denies Chest Pain, Diaphoresis or Palpitations
Abdomen/GI: Denies Abdominal Pain, Nausea, Vomiting or Diarrhea
: Denies Dysuria or Frequency
Musculoskeletal: Denies Joint Pain or Edema
Neurological: Reports Dizzy; Denies Headache
Psych: Denies Depression or Anxiety
Physical Exam
Vital Signs
Vital Signs
Temp Pulse Resp BP Pulse Ox
98.1 F 82 24 137/95 95
08/03/25 21:51 08/04/25 02:30 08/04/25 02:30 08/04/25 02:00 08/04/25 02:30
Physical Exam
General: Other (75y F in no acute distress.)
HEENT: Moist mucous membranes and PERRLA
Respiratory: Other (Scattered wheezes throughout. No rhonchi.)
Cardiac: S1/S2 and Irregular Rhythm; No Murmur
GI: Soft, Non Tender, Non Distended and Normal Bowel Sounds
Musculoskeletal: No Clubbing, No Cyanosis and No Edema
Neuro: AO x 3
Laboratory Results
-
08/03/25 22:03
08/03/25 22:
Laboratory Results
Total Bilirubin 0.7 mg/dl (0.2-1.3) 08/03/25 22:
AST 20 U/L (14-36) 08/03/25 22:
ALT 19 U/L (0-35) 08/03/25:
Alkaline Phosphatase 86 U/L (38-126) 08/03/25:
Impression/Plan
-
A/P: Patient is a 75y F with PMH significant for A-Fib s/p DCCV and ablation who presents to ED complaining of fatigue and elevated heart rates.
Atrial Flutter
Paroxysmal Atrial Fibrillation s/p DCCV and Ablation
- Admit to IVU for further evaluation and treatment.
- Rates much improved on diltiazem - continue and titrate as needed.
- Continue usual Xarelto - no missed doses per patient.
- Cardiology evaluation in the AM for additional recommendations.
Acute on Chronic HFpEF
- Audible wheezing on exam and SOB likely secondary to mild CHF due to rapid rates.
- IV Lasix daily for now.
- Treat A-Flutter as noted above.
- Echo done in June was normal.
- Patient is on Lasix only 'as needed' at home.
- Follow daily weights, I/Os, etc.
Benign Hypertension
- Stable. Continue metoprolol.
- Hold losartan acutely to avoid hypotension. Adjust regimen as needed.
DM-II, Diet Controlled
- A1C was 6.8% on prior visit.
- Follow glucose and cover with SSI as needed.
DVT Prophylaxis: On Xarelto
Code Status: Full
[2025-08-04 06:32] LABS: Hematocrit 40.1 % (37.0-47.0); Hemoglobin 13.3 g/dL (12.0-16.0); Mean Corp Hgb Conc. 33.2 g/dL (33.0-37.0); Mean Corpuscular Volume 96.2 fL (81.0-99.0); Platelet Count 238 10^3/uL (130-400); Red Cell Dist. Width 13.5 % (11.5-14.5)
[2025-08-04 07:03] LABS: Blood Urea Nitrogen 16 mg/dl (7-17); Calcium 9.1 mg/dl (8.4-10.2); Carbon Dioxide 24 mmol/L (22-30); Chloride 108 mmol/L (98-107); Estimated Creatinine Clearance 67 ml/min; Glucose 120 mg/dl (70-99); Potassium 4.0 mmol/L (3.5-5.1); Sodium 139 mmol/L (135-145); eGFR > 60.00
[2025-08-04 07:13] LABS: Troponin I 0.144 ng/ml
[2025-08-04] MEDS: CRESTOR 10 MG PO (07:39)
[2025-08-04] MEDS: TOPROL XL 50 MG PO ×2 (07:40→20:43)
[2025-08-04] MEDS: LASIX 40 MG IV (07:40)
--- NOTE | 2025-08-04 08:56 | CON.CAR ---
Addendum entered and electronically signed by Osiel Hood MD 08/04/25 12:36:
75-year-old woman who underwent PVI in June, 2 days later in our emergency department with spontaneously terminating paroxysmal atrial fibrillation. Now with symptoms of URI over the last week with fatigue and shortness of breath with wheezing.
Presented to the emergency department in atrial flutter, currently does not have symptoms of shortness of breath on IV diltiazem.
PMH: PAF, PVI 06/06/[address] Almanza,
Current medications: Metoprolol ER 50 mg twice daily, rivaroxaban 20 mg daily, rosuvastatin 10 mg a day, IV diltiazem, IV furosemide, spironolactone 25 mg a day, dapagliflozin on 5 mg a day, ceftriaxone, doxycycline
Rest of history per Idania Lopez. Reviewed in detail and agree unless otherwise specified.
132/86, pulse 102, respiratory rate 19, afebrile, lungs are relatively clear irregular rate and rhythm soft MR murmur, no gallops, abdomen benign not much edema
ECG: Atypical atrial flutter with predominant 2-1 conduction, nonspecific T wave changes left axis
Hemoglobin 13.3 white count 9.8, platelets 238, BUN/creatinine 16 and 0.8, proBNP 4370, troponin is 0.144
Chest x-ray: Mild vascular congestion
Echo June 2025: EF 60-65%, normal RV, dilated left atrium, dilated right atrium, aortic sclerosis with mild AI, moderate mitral regurgitation
Impression:
Atypical atrial flutter status post PVI June 2025
Acute on chronic HFpEF
Hypertension
Other diagnoses as below
Plan:
As per Idania Lopez. Reviewed in detail and agree unless otherwise specified
Continue rate control for now, she has not missed anticoagulation. This is her second recurrence since her PVI, we will add amiodarone pending approval by her primary mediation commissioner.
We will plan on proceeding with cardioversion in the morning.
Agree with IV Lasix.
Medical regimen overall looks very good.
Original Note:
Translation Services
-
Preferred Language: Malian
Helmet Hat Brim Cutter service via: Video
Helmet Hat Brim Cutter's ID Number: [id number]
Consultation
Consultation Request
Date/Time Consultation Requested: 08/04/2025 at 0533
Date/Time Consultation Performed: 08/04/2025 at 0914
Requesting Provider: Dr. Chuckie Jensen
Performing Provider: Dr. ALFREDO Hood
Reason for Consultation: SOB, wheezing and atrial arrhythmia
Medical History
-
History of Present Illness:
Patient came to [facility] ER last night with SOB, wheezing and palpitations and was admitted with rapid atrial arrhythmia and elevated troponin, cardiology is now consulted. I talked to the patient using language line take out waiter services and patient
reports that she has felt SOB since her ablation at [place] on 06/06/2025, but started with wheezing in the last few days. She has VAN, but is now starting to feel SOB at rest. Patient denies any fevers, chills or cough. Patient felt like she had a
URI with congestion and was using an albuterol inhaler a few times a day at home over the last week. Patient has been feeling more tired than usual and when she was checking her BP at home yesterday the automatic cuff was not working and when she
checked her pulse the HR was fast. Patient came to the ER and her initial ECG looks like SVT with an HR in the 170s. Patient was given adenosine 6 mg IV x 1 with slowing of HR and underlying rhythm appeared to be atrial flutter. Patient then
started on Cardizem gtt and HR improved, but patient does not feel any symptomatic improvement and continues to complain of wheezing. Patient was offered urgent CV in the ER, but declined in favor of cardiology evaluation this morning. Patient was
admitted to the hospitalist service and there was concern for possible acute HF and she was given Lasix 40 mg IV x 1 and reports increased urine output but no improvement in SOB or wheezing. Patient is stable on room air. Patient was initially
diagnosed with A-fib 06/2024 and had successful CV at that time and according to patient and son-in-law there was no recurrence of A-fib until last month, 05/2025. Patient had another successful CV, but recurred with A-fib 3 days later and was
referred for ablation that was performed on 06/06/2025. Ablation was uncomplicated and patient was discharged to home on the same day.
PMH:
Recent admission for rapid A-fib and chest pain 06/07/2025 until 06/08/2025
Paroxysmal A-fib with RVR
s/p successful CV 06/2024
s/p successful CV, but followed by rapid recurrence of A-fib 05/2025
s/p PVI 06/06/2025
Recurrence of rapid A-fib treated with Cardizem gtt and spontaneous conversion to SR [facility] ER 06/07/25
Chronic Xarelto OAC
HTN
Past Medical History
Past Medical History: Other (in HPI)
Past Surgical History: Cardiac (PVI at [facility] 06/06/25,) and Urological (bladder sling)
Social History
Tobacco: Non-Smoker
Alcohol: None
Drug: None
Living: Alone (Usually lives independently, but currently staying with family that lives locally)
Family History
Family History: Diabetes
Allergies / Home Medications
Allergy/AdvReac Type Severity Reaction Status Date / Time
No Known Allergies Allergy Unverified 08/03/25 21:52
�Medication �Instructions �Recorded �Confirmed �Type
albuterol sulfate 90 mcg/actuation 1 inh inhalation Q6HPRN PRN SOB 06/07/25 08/04/25 History
aerosol inhaler
calcium carbonate 500 mg PO DAILY Supplement ##0 06/07/25 08/04/25 History
furosemide 20 mg tablet 20 mg PO DAILYPRN PRN weight gain 06/07/25 08/04/25 History
rivaroxaban 20 mg tablet (Xarelto) 20 mg PO QPM Blood Clot 06/07/25 08/04/25 History
Prevention/Tx
rosuvastatin 10 mg tablet 10 mg PO DAILY High Cholesterol 06/07/25 08/04/25 History
losartan 50 mg tablet 50 mg PO DAILY Blood pressure #30 06/08/25 08/04/25 Rx
tabs
dapagliflozin propanediol 5 mg 5 mg PO DAILY 08/04/25 08/04/25 History
tablet (Farxiga)
metoprolol succinate 50 mg 50 mg PO BID 08/04/25 08/04/25 History
tablet,extended release 24 hr
(Toprol XL)
pantoprazole 20 mg tablet,delayed 20 mg PO DAILY 08/04/25 08/04/25 History
release (Protonix)
spironolactone 25 mg tablet 25 mg PO DAILY 08/04/25 08/04/25 History
Review of Systems
-
History Source: Patient
All other systems: Negative unless noted
Physical Exam
Vital Signs
Temp Pulse Resp BP Pulse Ox
98.3 F 84 20 139/83 95
08/04/25 07:29 08/04/25 06:15 08/04/25 06:15 08/04/25 06:00 08/04/25 06:15
GEN: NAD. AAOx3 using [employer] services
HEENT: EOMI, MMM
LUNGS: RA. Expiratory wheeze, no rales
CV: Atypical atrial flutter on tele. Reg, S1/S2, no murmur
ABD: ND
EXT: No edema B/L LE
NEURO: Gross non-focal
SKIN: No rash
Lab Results
08/04/25 06:01
08/04/25 06:01
Troponin I 0.144 ng/ml H* 08/04/25 06:01
Impression / Plan
-
PCP: Craig Garcia
Rod Finisher: Dr. Alicea, but transitioning to Dr. Almanza at [place]
Impression:
Admitted with rapid atrial arrhythmia and wheezing 08/03/2025
Recent admission for rapid A-fib and chest pain 06/07/2025 until 06/08/2025
Elevated troponin
Possible acute HFpEF
Atypical atrial flutter with RVR
Paroxysmal A-fib with RVR
s/p successful CV 06/2024
s/p successful CV, but followed by rapid recurrence of A-fib 05/2025
s/p PVI 06/06/2025
Recurrence of rapid A-fib treated with Cardizem gtt and spontaneous conversion to SR [facility] ER 06/07/25
Chronic Xarelto OAC
HTN
Echo 06/08/2025: Normal BiV size and function, no WMA, mild aortic regurgitation, moderate MR, mild PHTN
Plan:
-Patient came to [facility] ER last night with SOB, wheezing and palpitations and was admitted with rapid atrial arrhythmia and elevated troponin, cardiology is now consulted. I talked to the patient using language line take out waiter services and patient
reports that she has felt SOB since her ablation at [place] on 06/06/2025, but started with wheezing in the last few days. She has VAN, but is now starting to feel SOB at rest. Patient denies any fevers, chills or cough. Patient felt like she had a
URI with congestion and was using an albuterol inhaler a few times a day at home over the last week. Patient has been feeling more tired than usual and when she was checking her BP at home yesterday the automatic cuff was not working and when she
checked her pulse the HR was fast. Patient came to the ER and her initial ECG looks like SVT with an HR in the 170s. Patient was given adenosine 6 mg IV x 1 with slowing of HR and underlying rhythm appeared to be atrial flutter. Patient then
started on Cardizem gtt and HR improved, but patient does not feel any symptomatic improvement and continues to complain of wheezing. Patient was offered urgent CV in the ER, but declined in favor of cardiology evaluation this morning. Patient was
admitted to the hospitalist service and there was concern for possible acute HF and she was given Lasix 40 mg IV x 1 and reports increased urine output but no improvement in SOB or wheezing. Patient is stable on room air. Patient was initially
diagnosed with A-fib 06/2024 and had successful CV at that time and according to patient and son-in-law there was no recurrence of A-fib until last month, 05/2025. Patient had another successful CV, but recurred with A-fib 3 days later and was
referred for ablation that was performed on 06/06/2025. Ablation was uncomplicated and patient was discharged to home on the same day.
-ECG reviewed by me looks like atypical atrial flutter
-Patient has a known history of paroxysmal A-fib with previous CV 06/2024 and then recurred with atrial fibrillation again starting 05/2025. Patient had PVI with her primary EP at [place] on 06/06/2025 and had recurrence of A-fib that was treated in the
[facility] ER on 06/07/2025. Patient thinks that she was doing well from an arrhythmia standpoint as she generally has a normal HR reading on her home BP cuff, but starting yesterday HR was fast and home BP cuff was unable to register HR. Suspect
duration of atrial arrhythmia is within the last 24 to 48 hours. Patient denies missing any doses of her Xarelto 20 mg daily. Patient is now interested in an attempt at CV, we will schedule for 08/05/2025.
-Cardizem gtt running at 10 mg, will continue for now as patient has previously responded well to Cardizem gtt and had spontaneous conversion in the ER back on 06/07/2025
-Continue Xarelto 20 mg daily
-CXR without obvious CHF, but patient reports VAN progressing to resting SOB over the last week and has wheezing. Patient has not had symptomatic improvement with wheezing using inhaler at home. Check proBNP, order placed by me. Lasix 40 mg IV
daily started by hospitalist on admission. Follow for symptomatic improvement with diuresis. Patient was using Lasix 20 mg daily PRN prior to admission, but essentially never required any doses.
-EF was preserved by echo 06/08/2025
-Outpatient dose of losartan is on hold while undergoing IV diuresis
-Outpatient dose of Toprol-XL 50 mg BID has been continued
-Outpatient dose of Farxiga 5 mg daily is on hold, but will restart with orders placed by me
-Outpatient dose of spironolactone 25 mg daily is on hold, but will restart with orders placed by me
-Initial troponin 0.144 and additional troponin levels pending. Patient specifically denies any chest pain. This could be a nonischemic myocardial injury troponin elevation in the setting of rapid atrial arrhythmia and possibly acute HF.
-I called and left a message with the patient's son-in-law, Trey, who is an MANAGER STRATEGY at the [employer] and left him my cell number asking for a callback. Trey was previously very helpful in managing the patient's care during her overnight admission
in June. Await his call back
[2025-08-04 09:13] LABS: Glycohemoglobin (HgbA1c) 6.4 % (4.0-5.9)
[2025-08-04] MEDS: CARDIZEM 125 IV ×2 (09:45→18:09)
[2025-08-04 11:02] LABS: Glucose - Point of Care 134 mg/dl (70-99)
[2025-08-04] MEDS: ALDACTONE 25 MG PO (11:22)
[2025-08-04] MEDS: FARXIGA 5 MG PO (11:22)
--- NOTE | 2025-08-04 11:49 | W.PN.UPDATE ---
Addendum entered and electronically signed by Idania Lopez PA-C 08/04/25 15:04:
Talked with patient's primary filenet admin and they are in agreement with the addition of amiodarone.
Original Note:
Update Note
Progress Note Update
I called Dr. Almanza's office at [phone] and left a message asking for a callback to see if he was in agreement with the addition of amiodarone as AAD prior to planned CV. This is the patient's second clinically significant symptomatic
recurrence of atrial arrhythmia following PVI in June. Await their call back.
[2025-08-04] MEDS: ROCEPHIN 1000 MG IV (12:13)
[2025-08-04] MEDS: STERILE WATER FOR INJECTION 10 ML IV (12:13)
[2025-08-04] MEDS: VIBRAMYCIN 100 MG PO ×2 (12:13→20:43)
[2025-08-04 13:53] LABS: Troponin I 0.111 ng/ml
--- NOTE | 2025-08-04 14:21 | W.PN.HOSP.TC ---
Translation Services
-
Preferred Language: Libyan
Securities Attorney service via: daughter
Comment: Patient's daughter provided translation
Today's Communication/Plan
-
Cardioversion in am
Assessment / Plan
Assessment / Plan
Impression:
Patient is a 75y F with PMH significant for A-Fib s/p DCCV and ablation who presents to ED complaining of fatigue and elevated heart rates, found to have atrial flutter with RVR, seen by cardiology and plan for cardioversion in a.m..
Assessment/plan:
Atrial Flutter
Paroxysmal Atrial Fibrillation s/p DCCV and Ablation
- Admit to IVU for further evaluation and treatment.
- Rates much improved on diltiazem - continue and titrate as needed.
- Continue usual Xarelto - no missed doses per patient.
- Cardiology consulted, plan for KALINA/cardioversion in AM.
- Started amiodarone
Acute on Chronic HFpEF
- Audible wheezing on exam and SOB likely secondary to mild CHF due to rapid rates.
- IV Lasix daily for now.
- Treat A-Flutter as noted above.
- Echo done in June was normal.
- Patient is on Lasix only 'as needed' at home.
- Follow daily weights, I/Os, etc.
Benign Hypertension
- Stable. Continue metoprolol.
- Hold losartan acutely to avoid hypotension. Adjust regimen as needed.
DM-II, Diet Controlled
- A1C was 6.8% on prior visit.
- Follow glucose and cover with SSI as needed.
CODE STATUS: Full code
DVT prophylaxis: Xarelto
Diet: cardiac
Family communication: Discussed with daughter in the phone
Disposition: Cardioversion in am
Total time spent on today's encounter was 55 minutes which included time spent in counseling the patient/family regarding diagnosis and treatment plan as listed above, goals of care, and symptom management. Case was discussed with nursing staff,
specialists, and care coordinators/case management. All labs and imaging personally reviewed by me. Remainder the time spent in detailed review of previous records, lab data, imaging, and other medical provider documentation.
Anticipated Discharge: 24 - 48 hours
Subjective/Interval History
-
Date of Service: August 04, 2025
Patient seen and examined at bedside, denies any chest pain , shortness of breath Improved, updated daughter in the phone.
Objective Data
-
Labs:
Laboratory Results
08/04/25
06:01
WBC 9.8
Hgb 13.3
Hct 40.1
Plt Count 238
Sodium 139
Potassium 4.0
Chloride 108 H
Carbon Dioxide 24
BUN 16
Creatinine 0.8
Glucose 120 H
Calcium 9.1
Vital Signs:
Vital Signs
Temp Pulse Resp BP Pulse Ox
98.3 F 102 19 132/86 95
08/04/25 07:29 08/04/25 10:00 08/04/25 10:00 08/04/25 10:00 08/04/25 10:00
I&O
08/03/25 08/04/25 08/05/25
06:59 06:59 06:59
Output Total 1000 / 1000
Balance -1000 / -1000
Physical Exam
-
General: Well Developed, Well Nourished, No Apparent Distress and Comfortable
HEENT: Normocephalic, Atraumatic, Moist Mucous Membranes, No Ptosis, PERRLA and Nose Appears Normal
Respiratory: Rales and Non Labored Respirations
Cardiac: Regular Rhythm, S1/S2 and Irregular Rhythm
Breast: Deferred by me
GI: Soft, Nontender, Nondistended and Normal Bowel Sounds
Genito-urinary: No Costovertebral Tender
Musculoskeletal: No Clubbing, No Cyanosis and No Edema
Skin: Warm
Neuro: Awake, Alert, Oriented, AO x 3 and No Motor Deficits
Psych: Calm
Data Reviewed
-
Diagnostic Radiology: Image personally visualized and interpreted and Report Reviewed by me
CT Scan: Image personally visualized and interpreted and Report Reviewed by me
Ultrasound: Image personally visualized and interpreted and Report Reviewed by me
MRI: Image personally visualized and interpreted and Report Reviewed by me
Medical Tests (Nuc Med, Echo etc): Image personally visualized and interpreted and Report Reviewed by me
Labs: Labs Reviewed by me
Old Records: Reviewed
[2025-08-04] MEDS: PACERONE 400 MG PO ×2 (14:38→22:52)
--- NOTE | 2025-08-04 15:02 | PTCARENOTE ---
Pt having pauses lasting around 3 seconds. Appears to have converted to sinus rhythm. Cardiology made aware - discontinuing cardizem gtt.
[2025-08-04 17:59] LABS: Glucose - Point of Care 121 mg/dl (70-99)
--- NOTE | 2025-08-04 18:02 | PTCARENOTE ---
Patient received from ED as an admission. Alert to self, place, and time. Aflutter on telemetry, rate noted to be up in the 150s, diltiazem gtt to be restarted per Dr. Hood. Patient reports feeling lightheaded but denies pain. Patient oriented to
room and unit. Language line services utilized as patient is primarily Lao speaking. SaO2 on RA 97%. Call lund within reach. Plan of care discussed including NPO status at midnight. Care ongoing.
[2025-08-04] MEDS: CARDIZEM 10 MG IV (18:06)
[2025-08-04] MEDS: XARELTO 20 MG PO (18:35)
[2025-08-04 18:44] LABS: Troponin I 0.108 ng/ml
--- NOTE | 2025-08-04 21:38 | PTCARENOTE ---
assumed care of patient at the change of shift. language line used- Indian speaking. oriented x3. patient states feeling much better. denies any lightheadedness/dizziness. denies any pain. denies shortness of breath- appears to be dyspneic on
exertion though. harsh, productive cough. thick, clear mucous per patient. aflutter on tele- rates as low as 70s-100s at rest. increased rates with exertion. cardizem gtt infusing per order. bp stable. reviewed plan of care with patient. educated to
call RN with assistance overnight. ambulated to the bathroom and steady on her feet. NPO at midnight- patient understands. call lund within reach. makes needs known.
[2025-08-04 22:01] LABS: Glucose - Point of Care 120 mg/dl (70-99)
[2025-08-04] MEDS: ROBITUSSIN DM 5 ML PO (22:51)
[2025-08-05] VITALS (13 sets, daily range): BP systolic 96–152; BP diastolic 70–93; BMI 31.7
[2025-08-05 04:46] LABS: Hematocrit 44.5 % (37.0-47.0); Hemoglobin 14.6 g/dL (12.0-16.0); Mean Corp Hgb Conc. 32.8 g/dL (33.0-37.0); Mean Corpuscular Volume 94.3 fL (81.0-99.0); Platelet Count 288 10^3/uL (130-400); Red Cell Dist. Width 13.1 % (11.5-14.5)
[2025-08-05 05:07] LABS: Blood Urea Nitrogen 20 mg/dl (7-17); Calcium 9.7 mg/dl (8.4-10.2); Carbon Dioxide 23 mmol/L (22-30); Chloride 107 mmol/L (98-107); Estimated Creatinine Clearance 53 ml/min; Glucose 132 mg/dl (70-99); Potassium 4.0 mmol/L (3.5-5.1); Sodium 141 mmol/L (135-145); eGFR 58.75
[2025-08-05 06:40] LABS: Glucose - Point of Care 131 mg/dl (70-99)
--- NOTE | 2025-08-05 09:45 | PTCARENOTE ---
Received pt from manager laboratory, S/P unsuccessful cardioversion. Monitor reading afib vs atach with PAC's, HR 110-120, BP 140/90. Cardizem drip continues at 5mg/hr. Pt upset and tearful, spoke with daughter translating over the phone, all questions
answered--emotional support given.
[2025-08-05] MEDS: FARXIGA 5 MG PO (09:50)
[2025-08-05] MEDS: CRESTOR 10 MG PO (09:50)
[2025-08-05] MEDS: PACERONE 400 MG PO ×3 (09:50→22:18)
[2025-08-05] MEDS: LASIX 40 MG IV (09:51)
[2025-08-05] MEDS: ALDACTONE 25 MG PO (09:51)
[2025-08-05] MEDS: VIBRAMYCIN 100 MG PO ×2 (09:51→20:18)
[2025-08-05] MEDS: TOPROL XL 50 MG PO ×2 (09:51→20:18)
--- NOTE | 2025-08-05 12:12 | W.PN.HOSP.TC ---
Today's Communication/Plan
-
See plan
Assessment / Plan
Assessment / Plan
Impression:
Atypical atrial flutter with rapid ventricular response.
Acute CHF preserved EF decompensated in the settings of a rapid rate
Acute nonischemic myocardial injury in the settings of decompensated CHF/rapid atrial flutter
Acute bronchitis, questionable small left lower lobe pneumonia on imaging
Conditions prior to admission
Paroxysmal atrial fibrillation, status post PVI 06/06/2025 at [facility] with following atypical a flutter
Anticoagulation with Xarelto
Chronic CHF preserved EF
Essential hypertension
Diabetes type 2
Subclinical hypothyroidism
Imaging
Chest x-ray
1. Streaky retrocardiac opacity, which may represent left lower lobe subsegmental atelectasis or early pneumonia.
2. Otherwise clear lungs.
Echo 06/25
1. Normal biventricular size and systolic function, with no regional wall motion abnormalities.
2. Aortic sclerosis with mild regurgitation.
3. Moderate mitral regurgitation.
4. Mild pulmonary hypertension.
5. No prior study available for comparison.
Plan
Atypical a flutter with RVR.
Unsuccessful attempt of DCCV on 08/05
Initiated on amiodarone load on 08/05
Continue attempt of rate control with IV Cardizem.
Continue metoprolol succinate 50 mg twice daily
Continue anticoagulation with Xarelto
If no pharmacological cardioversion over the next 24 to 48 hours, consider to repeat DCCV while on amiodarone on Friday
Acute CHF preserved EF exacerbation secondary to rapid A-fib.
Nonischemic myocardial injury with flat troponins
CHF BNP 4570. Unknown baseline
No significant volume overload on exam. Weight close to baseline at 86 kg.
Chest x-ray with no evidence of pulmonary edema upon admission.
Continue gentle diuresis with IV Lasix. Monitor renal function.
Preadmission regimen/GDMT including Toprol-XL, losartan, Farxiga, spironolactone, low intensity statin
Suspected acute bronchitis/possibly early left lower lobe pneumonia on presentation
Afebrile, nontoxic-appearing
Mild nonproductive cough.
Initiated on empiric antibiotics ceftriaxone/doxycycline.
Check procalcitonin.
If negative would consider observe off antibiotics or complete short course of 5 days total therapy.
Type 2 diabetes.
Hemoglobin A1c at 6.8.
On Farxiga LEGAL EDITOR.
Basal bolus protocol
Currently euglycemic.
Subclinical hypothyroidism. Mild TSH elevation 5.41 with normal free T4.
Monitor closely once initiated on amiodarone.
Plan of care discussed with patient's daughter over the phone and cardiology.
Anticipated Discharge: > 48 hours
Subjective/Interval History
-
Date of Service: August 05, 2025
Objective Data
-
Labs:
Laboratory Results
08/05/25
04:08
WBC 9.8
Hgb 14.6
Hct 44.5
Plt Count 288 D
Sodium 141
Potassium 4.0
Chloride 107
Carbon Dioxide 23
BUN 20 H
Creatinine 1.0
Glucose 132 H
Calcium 9.7
Vital Signs:
Vital Signs
Temp Pulse Resp BP Pulse Ox
97.6 F 108 20 142/91 95
08/05/25 11:33 08/05/25 09:41 08/05/25 11:33 08/05/25 09:41 08/05/25 11:33
I&O
08/04/25 08/05/25 08/06/25
06:59 06:59 06:59
Intake Total 250 / 250
Output Total 1000 / 1000
Balance -750 / -750
Physical Exam
-
General: Well Developed and No Apparent Distress
HEENT: Normocephalic, Atraumatic and Moist Mucous Membranes
Respiratory: Clear to Auscultation
Cardiac: S1/S2 and Irregular Rhythm; Negative Murmur, Rub or Gallop
GI: Soft, Nontender, Nondistended and Normal Bowel Sounds; Negative Organomegaly
Rectal: Deferred by Provider
Musculoskeletal: No Clubbing, No Cyanosis and No Edema
Skin: Negative Rash
Neuro: Nonfocal/Grossly Intact
[2025-08-05 12:20] LABS: Glucose - Point of Care 142 mg/dl (70-99)
[2025-08-05] MEDS: NOVOLOG FLEXPEN-LOW RESISTANCE SC ×2 (12:26→17:01)
[2025-08-05] MEDS: ROCEPHIN 1000 MG IV (12:30)
[2025-08-05] MEDS: STERILE WATER FOR INJECTION 10 ML IV (12:30)
--- NOTE | 2025-08-05 12:44 | CM ---
Reviewed chart. Met with Mrs. Trotter to review discharge plans. Interview conducted with the help of the language line, computer forensics examiner. She states prior to admission she resides alone in a second floor apartment with elevator access. She states
prior to admission she ambulates with a walker and independent with adls. She states she has a walker at home. She states she has an R.N. and CAKE TESTER that come in to see her. He CAKE TESTER comes in seven days a week. She is not sure if she has a
prescription plan because her daughter taker care of shopping, appointments etc. Will need to see her current functional level to see if she will have any skilled care needs. Medical work-up in progress. The discharge plan is to return home with
family support and resumption of her home care services when medically stable
[2025-08-05] MEDS: CARDIZEM 125 IV ×2 (13:06→22:18)
[2025-08-05 13:30] LABS: Procalcitonin < 0.05 ng/ml (0.0-0.25)
--- NOTE | 2025-08-05 14:32 | W.PN.CARDCBS ---
Addendum entered and electronically signed by Vivian Hall DO 08/06/25 06:42:
I saw and examined the patient in PACU post CV 08/05/25
The Rest Room Maid's note was reviewed and I agree with the note.
Comment: Late entry. Patient was seen and examined post cardioversion
GEN:Sleepy post propofol for cardioversion
HEENT: mmm
LUNGS: Wheezes bilaterally
CV: Irreg irreg, S1/S2, 1/6 murmur
ABD: soft, BS+, NT/ND
EXT: No edema
Plan:
She presented with atypical atrial flutter with RVR. She has history of paroxysmal A-fib with cardioversion 06/24 with recurrence as of 05/2025. Status post PVI 06/06/2025 with recurrence 06/07/2025
- IV Cardizem gtt as well as amiodarone 400 mg TID 08/04/25
-Troponin peaked at 0.144. No complaints of chest pain, suspected nonischemic myocardial injury in setting of rapid atrial arrhythmia
- She underwent attempted cardioversion x 3 on 08/05/2025, however unfortunately was unsuccessful.
-Will plan to continue amiodarone loading through the weekend, with repeat cardioversion on Wednesday 08/08
- Continue Xarelto
HFpEF in setting of rapid AF/flutter
- proBNP 4370.
-Continue IV Lasix 40 mg daily.
-Creatinine stable at 1.0.
-EF was preserved by echo 06/08/2025
-Continue Toprol, Aldactone, Farxiga.
-Resume Outpatient losartan tomorrow if BP/CR stable
Original Note:
Translation Services
-
Preferred Language: Mozambican
Adoption Social Worker service via: Video
Today's Communication / Plan
-
Status post unsuccessful cardioversion 08/05
Plan to continue IV Cardizem, Toprol, amiodarone loading
Consider repeat cardioversion 08/08/2025 if remains in atypical a flutter
Continue Xarelto
Continue IV Lasix
Added Kiara Johnson
Impression / Plan
-
PCP: Craig Garcia
Publishing Manager: Dr. Alicea, but transitioning to Dr. Almanza at [place]
Impression:
Admitted with rapid atrial arrhythmia and wheezing 08/03/2025
Recent admission for rapid A-fib and chest pain 06/07/2025 until 06/08/2025
Elevated troponin
Possible acute HFpEF
Atypical atrial flutter with RVR
Paroxysmal A-fib with RVR
s/p successful CV 06/2024
s/p successful CV, but followed by rapid recurrence of A-fib 05/2025
s/p PVI 06/06/2025
Recurrence of rapid A-fib treated with Cardizem gtt and spontaneous conversion to SR PMDH ER 06/07/25
Chronic Xarelto OAC
HTN
Echo 06/08/2025: Normal BiV size and function, no WMA, mild aortic regurgitation, moderate MR, mild PHTN
Plan:
- primarily Mozambican speaking
- She presented with atypical atrial flutter with RVR. She has history of paroxysmal A-fib with cardioversion 06/24 with recurrence as of 05/2025. Status post PVI 06/06/2025 with recurrence 06/07/2025
- Was started on IV Cardizem gtt, presently at 15, as well as amiodarone 400 mg 3 times daily, started last evening. She underwent attempted cardioversion x 3 on 08/05/2025, however unfortunately was unsuccessful. Will plan to continue amiodarone
loading through the weekend, with repeat cardioversion on Wednesday 08/08
- Continue Xarelto
- She is with wheezing on examination. She believes she has bronchitis. proBNP 4370. Being diuresed with IV Lasix 40 mg daily. Creatinine stable at 1.0. Prior to admission was on Lasix 20 mg as needed, however rarely used. have also ordered
tessalon at her request. she does have albuterol inhaler which she was using at home without significant improvement. Chest x-ray 08/04 with possible left lower lobe atelectasis
-EF was preserved by echo 06/08/2025
-Continue Toprol, Aldactone, Farxiga. Outpatient losartan presently on hold with diuresis
-Troponin peaked at 0.144. No complaints of chest pain, suspected nonischemic myocardial injury in setting of rapid atrial arrhythmia
PREADMIT DATA:
-Patient came to [facility] ER last night with SOB, wheezing and palpitations and was admitted with rapid atrial arrhythmia and elevated troponin, cardiology is now consulted. I talked to the patient using language line instructional systems design consultant services and patient
reports that she has felt SOB since her ablation at [place] on 06/06/2025, but started with wheezing in the last few days. She has VAN, but is now starting to feel SOB at rest. Patient denies any fevers, chills or cough. Patient felt like she had a
URI with congestion and was using an albuterol inhaler a few times a day at home over the last week. Patient has been feeling more tired than usual and when she was checking her BP at home yesterday the automatic cuff was not working and when she
checked her pulse the HR was fast. Patient came to the ER and her initial ECG looks like SVT with an HR in the 170s. Patient was given adenosine 6 mg IV x 1 with slowing of HR and underlying rhythm appeared to be atrial flutter. Patient then
started on Cardizem gtt and HR improved, but patient does not feel any symptomatic improvement and continues to complain of wheezing. Patient was offered urgent CV in the ER, but declined in favor of cardiology evaluation this morning. Patient was
admitted to the hospitalist service and there was concern for possible acute HF and she was given Lasix 40 mg IV x 1 and reports increased urine output but no improvement in SOB or wheezing. Patient is stable on room air. Patient was initially
diagnosed with A-fib 06/2024 and had successful CV at that time and according to patient and son-in-law there was no recurrence of A-fib until last month, 05/2025. Patient had another successful CV, but recurred with A-fib 3 days later and was
referred for ablation that was performed on 06/06/2025. Ablation was uncomplicated and patient was discharged to home on the same day.
Progress Note - Publishing Manager
Subjective
Date of Service: August 05, 2025
Denies chest pain. Main complaint is of cough, and fatigue
Objective
Labs:
08/05/25 04:08
08/05/25 04:08
Labs
Hgb 14.6 g/dL (12.0-16.0) 08/05/25 04:08
Hct 44.5 % (37.0-47.0) 08/05/25 04:08
Plt Count 288 10^3/uL (130-400) D 08/05/25 04:08
Sodium 141 mmol/L (135-145) 08/05/25 04:08
Potassium 4.0 mmol/L (3.5-5.1) 08/05/25 04:08
BUN 20 mg/dl (7-17) H 08/05/25 04:08
Creatinine 1.0 mg/dL (0.6-1.0) 08/05/25 04:08
Glucose 132 mg/dl (70-99) H 08/05/25 04:08
Troponins
08/04/25 08/04/25 08/04/25
06:01 11:41 13:19
Troponin I 0.144 H* Cancelled 0.111 H*
08/04/25
17:58
Troponin I 0.108 H*
Vital Signs and I&O:
Vital Signs
Temp Pulse Resp BP Pulse Ox
97.6 F 120 20 113/85 95
08/05/25 11:33 08/05/25 13:45 08/05/25 11:33 08/05/25 13:08 08/05/25 11:33
Vital Signs
Temp Pulse Resp BP Pulse Ox
97.6 F 120 20 113/85 95
08/05/25 11:33 08/05/25 13:45 08/05/25 11:33 08/05/25 13:08 08/05/25 11:33
Intake & Output
08/03/25 08/04/25 08/05/25 08/06/25
07:59 07:59 07:59 07:59
Intake Total 250 / 250
Output Total 1000 / 1000
Balance -750 / -750
Physical Exam
Physical Exam
GEN: No distress, awake, alert, oriented x3
HEENT: supple, anicteric, mmm, EOMI
LUNGS: Wheezes bilaterally
CV: Irreg irreg, S1/S2, 1/6 murmur
ABD: soft, BS+, NT/ND
EXT: No cyanosis, clubbing, edema
NEURO: Gross non-focal
SKIN: Warm, pink, dry. No rash
[2025-08-05] MEDS: TESSALON PERLES 100 MG PO (15:00)
[2025-08-05 16:42] LABS: Glucose - Point of Care 114 mg/dl (70-99)
[2025-08-05] MEDS: XARELTO 20 MG PO (17:49)
[2025-08-05 21:21] LABS: Glucose - Point of Care 148 mg/dl (70-99)
--- NOTE | 2025-08-05 22:32 | PTCARENOTE ---
Received patient at change of shift. SR with a first degree and frequent PACs on the monitor, HR in the 80s. Cardizem running as per protocol, see documentation. Language line in room to communicate with pt. No complaints from pt at this time, call
lund within reach.
[2025-08-06] VITALS (9 sets, daily range): BP systolic 109–146; BP diastolic 77–97; BMI 31.7
[2025-08-06 07:38] LABS: Glucose - Point of Care 136 mg/dl (70-99)
[2025-08-06] MEDS: NOVOLOG FLEXPEN-LOW RESISTANCE SC (07:43)
[2025-08-06] MEDS: PACERONE 400 MG PO ×3 (08:32→22:13)
[2025-08-06] MEDS: TOPROL XL 50 MG PO ×2 (08:32→19:40)
[2025-08-06] MEDS: CRESTOR 10 MG PO (08:32)
[2025-08-06] MEDS: FARXIGA 5 MG PO (08:33)
[2025-08-06] MEDS: VIBRAMYCIN 100 MG PO ×2 (08:33→19:40)
[2025-08-06] MEDS: LASIX 40 MG IV (08:34)
[2025-08-06] MEDS: ALDACTONE 25 MG PO (08:34)
--- NOTE | 2025-08-06 10:32 | W.PN.CARDCBS ---
Addendum entered and electronically signed by Osiel Hood MD 08/06/25 13:43:
75-year-old woman who underwent PVI in June, 2 days later in our emergency department with spontaneously terminating paroxysmal atrial fibrillation. Now with symptoms of URI over the last week with fatigue and shortness of breath with wheezing.
Presented to the emergency department in atrial flutter, currently does not have symptoms of shortness of breath on IV diltiazem.
PMH: PAF, PVI 06/06/[address] Almanza,
Medications: Ceftriaxone, doxycycline, metoprolol ER 50 p.o. twice daily, rivaroxaban 20 a day, Crestor 10 mg a day, furosemide 40 mg IV daily, spironolactone 25 mg daily, Farxiga 5 mg a day since amiodarone 400 3 times daily, IV diltiazem, insulin
Through her daughter as an meeting coordinator, she is short of breath with exertion
133/82, pulse 112, respiratory rate 18, afebrile, weight is 86.4 kg, unchanged, bilateral wheezes and rhonchi, no obvious wet rales, JVD okay, irregular rate and rhythm with soft MR murmur no gallops
BUN and creatinine are 22 and 1.1, potassium is 3.7
Telemetry: Still atypical atrial flutter, intermittently rapid ventricular response
Impression:
Recurrent atypical flutter following PVI June 2025
History of paroxysmal A-fib
HFpEF
Bronchitis, possible left lower lobe pneumonia
Hypertension, diabetes, subclinical hypothyroidism
Plan:
She remains in atypical atrial flutter.
She is wheezing, still on ceftriaxone and doxycycline, defer to hospitalist regarding bronchodilators, etc. For now, continue beta-adonis though this may need to be revisited.
Will check proBNP and increase furosemide to 40 mg twice daily if proBNP has not improved significantly. proBNP was 4370 on admission
Potassium x 1
Original Note:
Today's Communication / Plan
-
Continue amiodarone load
EKG in a.m. for QTc monitoring
Wean Cardizem drip as heart rate allows
Cardioversion 08/08/2025 if patient fails to convert
Continue IV diuresis
BMP pending, daily BMPs ordered
Impression / Plan
-
PCP: Craig Garcia
Commercial Production Editor: Dr. Alicea, but transitioning to Dr. Almanza at [place]
Impression:
Admitted with rapid atrial arrhythmia and wheezing 08/03/2025
Recent admission for rapid A-fib and chest pain 06/07/2025 until 06/08/2025
Elevated troponin
Possible acute HFpEF
Atypical atrial flutter with RVR
Paroxysmal A-fib with RVR
s/p successful CV 06/2024
s/p successful CV, but followed by rapid recurrence of A-fib 05/2025
s/p PVI 06/06/2025
Recurrence of rapid A-fib treated with Cardizem gtt and spontaneous conversion to SR PMDH ER 06/07/25
Chronic Xarelto OAC
HTN
Echo 06/08/2025: Normal BiV size and function, no WMA, mild aortic regurgitation, moderate MR, mild PHTN
Plan:
- primarily Ghanaian speaking utilization of meeting coordinator during examination.
- She presented with atypical atrial flutter with RVR. She has history of paroxysmal A-fib with cardioversion 06/24 with recurrence as of 05/2025. Status post PVI 06/06/2025 with recurrence 06/07/2025
- Was started on IV Cardizem gtt, as high as 15 mg/hr, presently at 5 mg/hr, as well as amiodarone 400 mg 3 times daily, started 08/04/2025. She underwent attempted cardioversion x 3 on 08/05/2025, however unfortunately was unsuccessful. Will plan
to continue amiodarone loading through the weekend, with repeat cardioversion on Wednesday 08/08. EKG 08/06/2025 atrial flutter with controlled ventricular response, QTc 465 ms. Continue to monitor QTc with Amio load
- Continue Xarelto
- proBNP 4370. Being diuresed with IV Lasix 40 mg daily. Creatinine stable at 1.0 08/05, repeat pending 08/06. Prior to admission was on Lasix 20 mg as needed, however rarely used.
-Found to have wheezing on exam. Ongoing treatment with IV antibiotics secondary to acute bronchitis per primary service. She does have albuterol inhaler which she was using at home without significant improvement. Chest x-ray 08/04 with possible
left lower lobe atelectasis
-EF was preserved by echo 06/08/2025.
-Continue Toprol, Aldactone, Farxiga. Outpatient losartan presently on hold with diuresis and while on IV Cardizem drip. Hopeful resumption of losartan after Cardizem drip has been weaned
-Troponin peaked at 0.144. No complaints of chest pain, suspected nonischemic myocardial injury in setting of rapid atrial arrhythmia
Plan discussed with patient and nursing
PREADMIT DATA:
-Patient came to [facility] ER last night with SOB, wheezing and palpitations and was admitted with rapid atrial arrhythmia and elevated troponin, cardiology is now consulted. I talked to the patient using language line meeting coordinator services and patient
reports that she has felt SOB since her ablation at [place] on 06/06/2025, but started with wheezing in the last few days. She has VAN, but is now starting to feel SOB at rest. Patient denies any fevers, chills or cough. Patient felt like she had a
URI with congestion and was using an albuterol inhaler a few times a day at home over the last week. Patient has been feeling more tired than usual and when she was checking her BP at home yesterday the automatic cuff was not working and when she
checked her pulse the HR was fast. Patient came to the ER and her initial ECG looks like SVT with an HR in the 170s. Patient was given adenosine 6 mg IV x 1 with slowing of HR and underlying rhythm appeared to be atrial flutter. Patient then
started on Cardizem gtt and HR improved, but patient does not feel any symptomatic improvement and continues to complain of wheezing. Patient was offered urgent CV in the ER, but declined in favor of cardiology evaluation this morning. Patient was
admitted to the hospitalist service and there was concern for possible acute HF and she was given Lasix 40 mg IV x 1 and reports increased urine output but no improvement in SOB or wheezing. Patient is stable on room air. Patient was initially
diagnosed with A-fib 06/2024 and had successful CV at that time and according to patient and son-in-law there was no recurrence of A-fib until last month, 05/2025. Patient had another successful CV, but recurred with A-fib 3 days later and was
referred for ablation that was performed on 06/06/2025. Ablation was uncomplicated and patient was discharged to home on the same day.
Progress Note - Commercial Production Editor
Subjective
Date of Service: August 06, 2025
Utilization of meeting coordinator during examination. Patient seen and examined. Patient reports she still is having some shortness of breath with ambulation but denies shortness of breath at rest, orthopnea PND or edema. No chest pain. Some some
intermittent palpitations.
Objective
Labs:
08/05/25 04:08
08/05/25 04:08
Labs
Hgb 14.6 g/dL (12.0-16.0) 08/05/25 04:08
Hct 44.5 % (37.0-47.0) 08/05/25 04:08
Plt Count 288 10^3/uL (130-400) D 08/05/25 04:08
Sodium 141 mmol/L (135-145) 08/05/25 04:08
Potassium 4.0 mmol/L (3.5-5.1) 08/05/25 04:08
BUN 20 mg/dl (7-17) H 08/05/25 04:08
Creatinine 1.0 mg/dL (0.6-1.0) 08/05/25 04:08
Glucose 132 mg/dl (70-99) H 08/05/25 04:08
Troponins
08/04/25 08/04/25 08/04/25
06:01 11:41 13:19
Troponin I 0.144 H* Cancelled 0.111 H*
08/04/25
17:58
Troponin I 0.108 H*
Vital Signs and I&O:
Vital Signs
Temp Pulse Resp BP Pulse Ox
97.6 F 97 18 109/77 99
08/06/25 07:39 08/06/25 08:32 08/06/25 07:39 08/06/25 08:32 08/06/25 07:39
Vital Signs
Temp Pulse Resp BP Pulse Ox
97.6 F 97 18 109/77 99
08/06/25 07:39 08/06/25 08:32 08/06/25 07:39 08/06/25 08:32 08/06/25 07:39
Intake & Output
08/04/25 08/05/25 08/06/25 08/07/25
06:59 06:59 06:59 06:59
Intake Total 250 / 250 480 / 480
Output Total 1000 / 1000
Balance -750 / -750 480 / 480
Physical Exam
Physical Exam
GEN: No distress, awake, Ox3
HEENT: supple, anicteric, mmm
LUNGS: Faint crackles at left base, faint expiratory wheezing otherwise CTA
CV: Irregularly irregular, S1/S2, 1/6 syst murmur
ABD: soft, BS+, NT/ND
EXT: No edema, clubbing or cyanosis
NEURO: Gross non-focal
SKIN: No rash, warm, dry, pink
[2025-08-06 11:34] LABS: Blood Urea Nitrogen 22 mg/dl (7-17); Calcium 9.7 mg/dl (8.4-10.2); Chloride 102 mmol/L (98-107); Estimated Creatinine Clearance 48 ml/min; Glucose 171 mg/dl (70-99); Sodium 138 mmol/L (135-145); eGFR 52.40
[2025-08-06 11:39] LABS: Carbon Dioxide 26 mmol/L (22-30)
[2025-08-06 12:07] LABS: Potassium 3.7 mmol/L (3.5-5.1)
[2025-08-06 12:54] LABS: Glucose - Point of Care 150 mg/dl (70-99)
[2025-08-06] MEDS: ROCEPHIN 1000 MG IV (13:17)
[2025-08-06] MEDS: NOVOLOG FLEXPEN-LOW RESISTANCE 1 UNITS SC (13:20)
[2025-08-06] MEDS: STERILE WATER FOR INJECTION 10 ML IV (13:21)
--- NOTE | 2025-08-06 14:21 | W.PN.HOSP.TC ---
Today's Communication/Plan
-
av melissa blockade
amio
Cardioversion Friday
Incentive mirian, acapella
add on probnp - adjust diuresis accordingly
duonebs
Assessment / Plan
Assessment / Plan
Impression:
Atypical atrial flutter with rapid ventricular response.
Acute CHF preserved EF decompensated in the settings of a rapid rate
Acute nonischemic myocardial injury in the settings of decompensated CHF/rapid atrial flutter
Acute bronchitis, questionable small left lower lobe pneumonia on imaging
Conditions prior to admission
Paroxysmal atrial fibrillation, status post PVI 06/06/[address] [facility] with following atypical a flutter
Anticoagulation with Xarelto
Chronic CHF preserved EF
Essential hypertension
Diabetes type 2
Subclinical hypothyroidism
Imaging
Chest x-ray
1. Streaky retrocardiac opacity, which may represent left lower lobe subsegmental atelectasis or early pneumonia.
2. Otherwise clear lungs.
Echo 06/25
1. Normal biventricular size and systolic function, with no regional wall motion abnormalities.
2. Aortic sclerosis with mild regurgitation.
3. Moderate mitral regurgitation.
4. Mild pulmonary hypertension.
5. No prior study available for comparison.
Plan
Atypical a flutter with RVR.
Unsuccessful attempt of DCCV on 08/05
Initiated on amiodarone load on 08/05
Continue attempt of rate control with IV Cardizem.
Continue metoprolol succinate 50 mg twice daily
Continue anticoagulation with Xarelto
If no pharmacological cardioversion over the next 24 to 48 hours, consider to repeat DCCV while on amiodarone on Friday
Acute CHF preserved EF exacerbation secondary to rapid A-fib.
Nonischemic myocardial injury with flat troponins
CHF BNP 4570. Unknown baseline
No significant volume overload on exam. Weight close to baseline at 86 kg.
Chest x-ray with no evidence of pulmonary edema upon admission.
Continue gentle diuresis with IV Lasix. Monitor renal function.
Preadmission regimen/GDMT including Toprol-XL, losartan, Farxiga, spironolactone, low intensity statin
Suspected acute bronchitis/possibly early left lower lobe pneumonia on presentation
Afebrile, nontoxic-appearing
Mild nonproductive cough.
Initiated on empiric antibiotics ceftriaxone/doxycycline.
Check procalcitonin.
Type 2 diabetes.
Hemoglobin A1c at 6.8.
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
Basal bolus protocol
Currently euglycemic.
Subclinical hypothyroidism. Mild TSH elevation 5.41 with normal free T4.
Monitor closely once initiated on amiodarone.
Plan of care discussed with patient's daughter over the phone and cardiology.
Update 08/06 - Continue diltiazem drip, metoprolol, amiodarone. Plan for cardioversion Friday. Respiratory status improving although still wheezing: likely viral URI although with imaging findings and improvement on antibiotics - can argue to
complete 5 days ; Incentive mirian,acapella, duonebs. Check proBNP - may need increase in diuresis
Anticipated Discharge: > 48 hours
Subjective/Interval History
-
Date of Service: August 06, 2025
no acute events overnight; respiratory symptoms improving
Objective Data
-
Labs:
Laboratory Results
08/06/25
10:48
Sodium 138
Potassium 3.7
Chloride 102
Carbon Dioxide 26
BUN 22 H
Creatinine 1.1 H
Glucose 171 H
Calcium 9.7
Vital Signs:
Vital Signs
Temp Pulse Resp BP Pulse Ox
97.4 F 112 18 133/82 97
08/06/25 12:55 08/06/25 12:55 08/06/25 12:55 08/06/25 08:44 08/06/25 12:55
I&O
08/05/25 08/06/25 08/07/25
06:59 06:59 06:59
Intake Total 250 / 250 480 / 480
Output Total 1000 / 1000
Balance -750 / -750 480 / 480
Review of Systems
-
History Source: Patient
All other systems: Not reviewed unless documented
Physical Exam
-
General: Well Developed and No Apparent Distress
HEENT: Normocephalic, Atraumatic and Moist Mucous Membranes
Respiratory: Clear to Auscultation
Cardiac: S1/S2 and Irregular Rhythm; Negative Murmur, Rub or Gallop
GI: Soft, Nontender, Nondistended and Normal Bowel Sounds; Negative Organomegaly
Rectal: Deferred by Provider
Musculoskeletal: No Clubbing, No Cyanosis and No Edema
Skin: Negative Rash
Neuro: Nonfocal/Grossly Intact
Data Reviewed
-
Diagnostic Radiology: Report Reviewed by me
Labs: Labs Reviewed by me
[2025-08-06] MEDS: KCL 40 MEQ PO (14:38)
[2025-08-06] MEDS: CARDIZEM CD 180 MG PO (14:38)
--- NOTE | 2025-08-06 15:24 | PTCARENOTE ---
08/06/25 Received patient in bed with IV Cardizem infusing at 5mg/hr. Pt on heart monitor in A Fib 80-100. Pt is AAO x3, translated via phone. Pt able to answer my questions, support given. Pt walking around room without issue. Pt on room air 98%. Pt
with no complaints of chest pain. Pt with VAN+, lungs coarse at bases with some wheezing, prod cough.
[2025-08-06] MEDS: DUONEB 3 ML INH ×2 (15:49→18:17)
[2025-08-06] MEDS: CARDIZEM 10 MG IV (16:07)
[2025-08-06 16:57] LABS: Glucose - Point of Care 209 mg/dl (70-99)
[2025-08-06] MEDS: NOVOLOG FLEXPEN-LOW RESISTANCE 2 UNITS SC (17:35)
[2025-08-06] MEDS: XARELTO 20 MG PO (19:40)
[2025-08-06 22:12] LABS: Glucose - Point of Care 150 mg/dl (70-99)
--- NOTE | 2025-08-06 22:21 | PTCARENOTE ---
Received patient at change of shift. Afib on the monitor, HR in the 90s. Language line in room. No complaints from pt at this time, call lund within reach.
[2025-08-07] VITALS (9 sets, daily range): BP systolic 103–138; BP diastolic 81–93; BMI 31.8
[2025-08-07 04:19] LABS: Hematocrit 41.9 % (37.0-47.0); Hemoglobin 14.2 g/dL (12.0-16.0); Mean Corp Hgb Conc. 33.9 g/dL (33.0-37.0); Mean Corpuscular Volume 91.1 fL (81.0-99.0); Platelet Count 289 10^3/uL (130-400); Red Cell Dist. Width 12.9 % (11.5-14.5)
[2025-08-07 04:44] LABS: Blood Urea Nitrogen 24 mg/dl (7-17); Calcium 9.8 mg/dl (8.4-10.2); Carbon Dioxide 22 mmol/L (22-30); Chloride 105 mmol/L (98-107); Estimated Creatinine Clearance 53 ml/min; Glucose 142 mg/dl (70-99); Potassium 4.0 mmol/L (3.5-5.1); Sodium 139 mmol/L (135-145); eGFR 58.75
[2025-08-07] MEDS: DUONEB 3 ML INH ×4 (07:17→18:01)
[2025-08-07 09:13] LABS: Glucose - Point of Care 136 mg/dl (70-99)
[2025-08-07] MEDS: NOVOLOG FLEXPEN-LOW RESISTANCE SC (09:13)
[2025-08-07] MEDS: FARXIGA 5 MG PO (09:14)
[2025-08-07] MEDS: CARDIZEM CD 180 MG PO (09:14)
[2025-08-07] MEDS: PACERONE 400 MG PO ×3 (09:14→22:38)
[2025-08-07] MEDS: ALDACTONE 25 MG PO (09:14)
[2025-08-07] MEDS: VIBRAMYCIN 100 MG PO ×2 (09:14→19:44)
[2025-08-07] MEDS: LASIX 40 MG IV (09:15)
[2025-08-07] MEDS: FLUSH (NSS) 2 FLUSH IV (09:15)
[2025-08-07] MEDS: TOPROL XL 50 MG PO ×2 (09:15→19:44)
[2025-08-07] MEDS: CRESTOR 10 MG PO (09:15)
[2025-08-07] MEDS: CARDIZEM 10 MG IV ×2 (10:33→15:57)
--- NOTE | 2025-08-07 10:45 | PTCARENOTE ---
Patient in an A flutter with rates in the 130's-140's after morning meds. Given IV cardizem as ordered, BP now 121/84 with HR 100. She is aware that she is NPO in the morning for repeat CV.
[2025-08-07] MEDS: MIRALAX 17 GRAMS PO (11:51)
[2025-08-07] MEDS: SENOKOT-S 1 TABLET PO ×2 (11:51→19:44)
[2025-08-07] MEDS: ROCEPHIN 1000 MG IV (11:52)
[2025-08-07] MEDS: STERILE WATER FOR INJECTION 10 ML IV (11:52)
[2025-08-07 12:25] LABS: Glucose - Point of Care 166 mg/dl (70-99)
--- NOTE | 2025-08-07 12:35 | W.PN.CARDCBS ---
Today's Communication / Plan
-
Cardioversion in a.m.
Impression / Plan
-
PCP: Craig Garcia
Search Engine Optimization Specialist: Dr. Alicea, but transitioning to Dr. Almanza at [place]
Impression:
Admitted with rapid atrial arrhythmia and wheezing 08/03/2025
Recent admission for rapid A-fib and chest pain 06/07/2025 until 06/08/2025
Elevated troponin
Bronchitis, possible pneumonia
Acute HFpEF
Atypical atrial flutter with RVR
Paroxysmal A-fib with RVR
s/p successful CV 06/2024
s/p successful CV, but followed by rapid recurrence of A-fib 05/2025
s/p PVI 06/06/2025
Recurrence of rapid A-fib treated with Cardizem gtt and spontaneous conversion to SR [facility] ER 06/07/25
Chronic Xarelto OAC
HTN
Echo 06/08/2025: Normal BiV size and function, no WMA, mild aortic regurgitation, moderate MR, mild PHTN
Plan:
Overall she is stable from a cardiac standpoint though still tachycardic and atypical atrial flutter on diltiazem and metoprolol. She is on amiodarone as well.
Failed cardioversion on Friday, with additional amiodarone loading will attempt repeat cardioversion.
Her proBNP has dropped compared to admission, now approximately 2500 from 4300
Discussed with daughter.
Hopefully will successfully revert to normal sinus rhythm in a.m.
At this point, would not pursue troponin.
PREADMIT DATA:
-Patient came to [facility] ER last night with SOB, wheezing and palpitations and was admitted with rapid atrial arrhythmia and elevated troponin, cardiology is now consulted. I talked to the patient using language line paraprofessional interpreter services and patient
reports that she has felt SOB since her ablation at [place] on 06/06/2025, but started with wheezing in the last few days. She has VAN, but is now starting to feel SOB at rest. Patient denies any fevers, chills or cough. Patient felt like she had a
URI with congestion and was using an albuterol inhaler a few times a day at home over the last week. Patient has been feeling more tired than usual and when she was checking her BP at home yesterday the automatic cuff was not working and when she
checked her pulse the HR was fast. Patient came to the ER and her initial ECG looks like SVT with an HR in the 170s. Patient was given adenosine 6 mg IV x 1 with slowing of HR and underlying rhythm appeared to be atrial flutter. Patient then
started on Cardizem gtt and HR improved, but patient does not feel any symptomatic improvement and continues to complain of wheezing. Patient was offered urgent CV in the ER, but declined in favor of cardiology evaluation this morning. Patient was
admitted to the hospitalist service and there was concern for possible acute HF and she was given Lasix 40 mg IV x 1 and reports increased urine output but no improvement in SOB or wheezing. Patient is stable on room air. Patient was initially
diagnosed with A-fib 06/2024 and had successful CV at that time and according to patient and son-in-law there was no recurrence of A-fib until last month, 05/2025. Patient had another successful CV, but recurred with A-fib 3 days later and was
referred for ablation that was performed on 06/06/2025. Ablation was uncomplicated and patient was discharged to home on the same day.
Progress Note - Search Engine Optimization Specialist
Subjective
Date of Service: August 07, 2025:
75-year-old woman who underwent PVI in June, 2 days later in our emergency department with spontaneously terminating paroxysmal atrial fibrillation. Now with symptoms of URI over the last week with fatigue and shortness of breath with wheezing.
Presented to the emergency department in atrial flutter, currently does not have symptoms of shortness of breath on IV diltiazem.
PMH: PAF, PVI 06/06/[address] Almanza,
Medications: Metoprolol succinate 50 mg p.o. twice daily, Xarelto 20 mg a day, Crestor 10 mg a day, furosemide 40 mg IV daily, spironolactone 25 mg a day, dapagliflozin 5 mg a day, Rocephin, doxycycline p.o., amiodarone 400 3 times daily, diltiazem
180 mg a day, DuoNebs
114/89, 120, respiratory rate 20, afebrile, weight is 86.8 kg, up 0.4 kg, scattered wheezes but improved, tachycardic, no obvious murmurs, abdomen benign, no edema JVD okay
White count is 10.2, hemoglobin 14.2, platelets 289, BUN and creatinine are 24 and 1, potassium is 4, proBNP was 2530 yesterday was 4370 on admission
Objective
Labs:
08/07/25 03:33
08/07/25 03:33
Labs
Hgb 14.2 g/dL (12.0-16.0) 08/07/25 03:33
Hct 41.9 % (37.0-47.0) 08/07/25 03:33
Plt Count 289 10^3/uL (130-400) 08/07/25 03:33
Sodium 139 mmol/L (135-145) 08/07/25 03:33
Potassium 4.0 mmol/L (3.5-5.1) 08/07/25 03:33
BUN 24 mg/dl (7-17) H 08/07/25 03:33
Creatinine 1.0 mg/dL (0.6-1.0) 08/07/25 03:33
Glucose 142 mg/dl (70-99) H 08/07/25 03:33
Troponins
08/04/25 08/04/25
13:19 17:58
Troponin I 0.111 H* 0.108 H*
Vital Signs and I&O:
Vital Signs
Temp Pulse Resp BP Pulse Ox
36.9 C 120 20 114/89 98
08/07/25 11:46 08/07/25 12:15 08/07/25 11:46 08/07/25 11:46 08/07/25 11:46
Vital Signs
Temp Pulse Resp BP Pulse Ox
36.9 C 120 20 114/89 98
08/07/25 11:46 08/07/25 12:15 08/07/25 11:46 08/07/25 11:46 08/07/25 11:46
Intake & Output
08/05/25 08/06/25 08/07/25 08/08/25
07:59 07:59 07:59 07:59
Intake Total 250 / 250 480 / 480 250 / 250 240 / 240
Output Total 1000 / 1000
Balance -750 / -750 480 / 480 250 / 250 240 / 240
Physical Exam
Physical Exam
See above
[2025-08-07] MEDS: NOVOLOG FLEXPEN-LOW RESISTANCE 1 UNITS SC ×2 (13:08→18:24)
--- NOTE | 2025-08-07 14:24 | W.PN.HOSP.TC ---
Today's Communication/Plan
-
abx
DCCV in am
Assessment / Plan
Assessment / Plan
Impression:
Atypical atrial flutter with rapid ventricular response.
Acute CHF preserved EF decompensated in the settings of a rapid rate
Acute nonischemic myocardial injury in the settings of decompensated CHF/rapid atrial flutter
Acute bronchitis, questionable small left lower lobe pneumonia on imaging
Conditions prior to admission
Paroxysmal atrial fibrillation, status post PVI 06/06/2025 at [facility] with following atypical a flutter
Anticoagulation with Xarelto
Chronic CHF preserved EF
Essential hypertension
Diabetes type 2
Subclinical hypothyroidism
Imaging
Chest x-ray
1. Streaky retrocardiac opacity, which may represent left lower lobe subsegmental atelectasis or early pneumonia.
2. Otherwise clear lungs.
Echo 06/25
1. Normal biventricular size and systolic function, with no regional wall motion abnormalities.
2. Aortic sclerosis with mild regurgitation.
3. Moderate mitral regurgitation.
4. Mild pulmonary hypertension.
5. No prior study available for comparison.
Plan
Atypical a flutter with RVR.
Unsuccessful attempt of DCCV on 08/05
Initiated on amiodarone load on 08/05
Continue attempt of rate control with IV Cardizem.
Continue metoprolol succinate 50 mg twice daily
Continue anticoagulation with Xarelto
If no pharmacological cardioversion over the next 24 to 48 hours, consider to repeat DCCV while on amiodarone on Friday
Acute CHF preserved EF exacerbation secondary to rapid A-fib.
Nonischemic myocardial injury with flat troponins
CHF BNP 4570. Unknown baseline
No significant volume overload on exam. Weight close to baseline at 86 kg.
Chest x-ray with no evidence of pulmonary edema upon admission.
Continue gentle diuresis with IV Lasix. Monitor renal function.
Preadmission regimen/GDMT including Toprol-XL, losartan, Farxiga, spironolactone, low intensity statin
Suspected acute bronchitis/possibly early left lower lobe pneumonia on presentation
Afebrile, nontoxic-appearing
Mild nonproductive cough.
Initiated on empiric antibiotics ceftriaxone/doxycycline.
Check procalcitonin.
Type 2 diabetes.
Hemoglobin A1c at 6.8.
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
Basal bolus protocol
Currently euglycemic.
Subclinical hypothyroidism. Mild TSH elevation 5.41 with normal free T4.
Monitor closely once initiated on amiodarone.
Plan of care discussed with patient's daughter over the phone and cardiology.
Update 08/06 - Continue diltiazem drip, metoprolol, amiodarone. Plan for cardioversion Friday. Respiratory status improving although still wheezing: likely viral URI although with imaging findings and improvement on antibiotics - can argue to
complete 5 days ; Incentive mirian,acapella, duonebs.
Update 08/07 - DCCV in am
Anticipated Discharge: 24 - 48 hours
Subjective/Interval History
-
Date of Service: August 07, 2025
no acute events overnight, cough improving
Objective Data
-
Labs:
Laboratory Results
08/07/25
03:33
WBC 10.2
Hgb 14.2
Hct 41.9
Plt Count 289
Sodium 139
Potassium 4.0
Chloride 105
Carbon Dioxide 22
BUN 24 H
Creatinine 1.0
Glucose 142 H
Calcium 9.8
Vital Signs:
Vital Signs
Temp Pulse Resp BP Pulse Ox
98.5 F 120 20 114/89 98
08/07/25 11:46 08/07/25 12:15 08/07/25 11:46 08/07/25 11:46 08/07/25 11:46
I&O
08/06/25 08/07/25 08/08/25
06:59 06:59 06:59
Intake Total 480 / 480 250 / 250 240 / 240
Balance 480 / 480 250 / 250 240 / 240
Review of Systems
-
History Source: Patient
All other systems: Not reviewed unless documented
Data Reviewed
-
Diagnostic Radiology: Report Reviewed by me
Labs: Labs Reviewed by me
[2025-08-07 18:24] LABS: Glucose - Point of Care 157 mg/dl (70-99)
[2025-08-07] MEDS: XARELTO 20 MG PO (19:44)
[2025-08-07 22:24] LABS: Glucose - Point of Care 134 mg/dl (70-99)
[2025-08-08] VITALS (12 sets, daily range): BP systolic 107–148; BP diastolic 82–135; BMI 31.7
--- NOTE | 2025-08-08 01:14 | PTCARENOTE ---
assumed care of patient at the change of shift. AAOx3. Ugandan speaking; res habilitation assistant line used. patient appears anxious. she states just wanting her heart to be in normal rhythm. denies any palps. improved shortness of breath and cough. mild dyspnea
noted. Aflutter on tele. increased rates with movement 120s-130s. improved after scheduled meds given. at rest HR currently- 90s-100s. bp stable. independent in the room. verbalized understanding of NPO at midnight for CV. call lund within reach.
makes needs known.
[2025-08-08 04:57] LABS: Hematocrit 43.4 % (37.0-47.0); Hemoglobin 14.7 g/dL (12.0-16.0); Mean Corp Hgb Conc. 33.9 g/dL (33.0-37.0); Mean Corpuscular Volume 91.8 fL (81.0-99.0); Platelet Count 307 10^3/uL (130-400); Red Cell Dist. Width 12.8 % (11.5-14.5)
[2025-08-08 05:29] LABS: Blood Urea Nitrogen 25 mg/dl (7-17); Calcium 10.1 mg/dl (8.4-10.2); Carbon Dioxide 24 mmol/L (22-30); Chloride 104 mmol/L (98-107); Estimated Creatinine Clearance 48 ml/min; Glucose 151 mg/dl (70-99); Potassium 4.3 mmol/L (3.5-5.1); Sodium 139 mmol/L (135-145); eGFR 52.40
[2025-08-08 06:37] LABS: Glucose - Point of Care 142 mg/dl (70-99)
[2025-08-08] MEDS: DUONEB 3 ML INH (07:14)
[2025-08-08] MEDS: CARDIZEM CD 180 MG PO (08:24)
[2025-08-08] MEDS: FARXIGA 5 MG PO (08:24)
[2025-08-08] MEDS: CRESTOR 10 MG PO (08:24)
[2025-08-08] MEDS: ALDACTONE 25 MG PO (08:24)
[2025-08-08] MEDS: PACERONE 400 MG PO ×3 (08:25→22:46)
[2025-08-08] MEDS: SENOKOT-S 1 TABLET PO ×2 (08:25→19:42)
[2025-08-08] MEDS: VIBRAMYCIN 100 MG PO ×2 (08:25→19:42)
[2025-08-08] MEDS: TOPROL XL 50 MG PO ×2 (08:25→19:42)
[2025-08-08] MEDS: MIRALAX 17 GRAMS PO (08:25)
[2025-08-08] MEDS: FLUSH (NSS) 1 FLUSH IV (08:26)
--- NOTE | 2025-08-08 09:50 | PTCARENOTE ---
Patient remains in an A flutter, NPO x meds, taken to the laborer construction or leak gang for CV.
--- NOTE | 2025-08-08 11:36 | W.PN.HOSP.TC ---
Today's Communication/Plan
-
Attempt of DCCV remains in a flutter after.
Assessment / Plan
Assessment / Plan
Impression:
Atypical atrial flutter with rapid ventricular response.
Acute CHF preserved EF decompensated in the settings of a rapid rate
Acute nonischemic myocardial injury in the settings of decompensated CHF/rapid atrial flutter
Acute bronchitis, questionable small left lower lobe pneumonia on imaging
Conditions prior to admission
Paroxysmal atrial fibrillation, status post PVI 06/06/2025 at [facility] with following atypical a flutter
Anticoagulation with Xarelto
Chronic CHF preserved EF
Essential hypertension
Diabetes type 2
Subclinical hypothyroidism
Imaging
Chest x-ray
1. Streaky retrocardiac opacity, which may represent left lower lobe subsegmental atelectasis or early pneumonia.
2. Otherwise clear lungs.
Echo 06/25
1. Normal biventricular size and systolic function, with no regional wall motion abnormalities.
2. Aortic sclerosis with mild regurgitation.
3. Moderate mitral regurgitation.
4. Mild pulmonary hypertension.
5. No prior study available for comparison.
Plan
Atypical a flutter with RVR.
Unsuccessful attempt of DCCV on 08/05
Unsuccessful attempt of DCCV on 08/08 after attempt of amiodarone load
Initiated on amiodarone load on 08/05
Continue metoprolol succinate 50 mg twice daily
Continue anticoagulation with Xarelto
Acute CHF preserved EF exacerbation secondary to rapid A-fib.
Nonischemic myocardial injury with flat troponins
CHF BNP 4570. Unknown baseline
No significant volume overload on exam. Weight close to baseline at 86 kg.
Chest x-ray with no evidence of pulmonary edema upon admission.
Continue gentle diuresis with IV Lasix. Monitor renal function.
Preadmission regimen/GDMT including Toprol-XL, losartan, Farxiga, spironolactone, low intensity statin
Suspected acute bronchitis/possibly early left lower lobe pneumonia on presentation
Afebrile, nontoxic-appearing
Mild nonproductive cough.
Procalcitonin negative
Initiated on empiric antibiotics ceftriaxone/doxycycline.
Plan is to complete 5-day course of antibiotics on 08/09
Type 2 diabetes.
Hemoglobin A1c at 6.8.
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
Basal bolus protocol
Currently euglycemic.
Subclinical hypothyroidism. Mild TSH elevation 5.41 with normal free T4.
Monitor closely once initiated on amiodarone.
Anticipated Discharge: 24 - 48 hours
Subjective/Interval History
-
Date of Service: August 08, 2025
Objective Data
-
Labs:
Laboratory Results
08/08/25
04:47
WBC 9.3
Hgb 14.7
Hct 43.4
Plt Count 307
Sodium 139
Potassium 4.3
Chloride 104
Carbon Dioxide 24
BUN 25 H
Creatinine 1.1 H
Glucose 151 H
Calcium 10.1
Vital Signs:
Vital Signs
Temp Pulse Resp BP Pulse Ox
97.9 F 139 16 108/96 95
08/08/25 04:47 08/08/25 08:25 08/08/25 07:15 08/08/25 08:25 08/08/25 04:47
I&O
08/07/25 08/08/25 08/09/25
06:59 06:59 06:59
Intake Total 250 / 250 970 / 970
Balance 250 / 250 970 / 970
Physical Exam
-
General: Well Developed and No Apparent Distress
HEENT: Normocephalic, Atraumatic and Moist Mucous Membranes
Respiratory: Clear to Auscultation
Cardiac: S1/S2 and Irregular Rhythm; Negative Murmur, Rub or Gallop
GI: Soft, Nontender, Nondistended and Normal Bowel Sounds; Negative Organomegaly
Rectal: Deferred by Provider
Musculoskeletal: No Clubbing, No Cyanosis and No Edema
Skin: Negative Rash
Neuro: Nonfocal/Grossly Intact
[2025-08-08] MEDS: DUONEB INH (11:39)
[2025-08-08] MEDS: ROCEPHIN 1000 MG IV (12:12)
[2025-08-08] MEDS: LASIX 40 MG IV (12:12)
[2025-08-08] MEDS: STERILE WATER FOR INJECTION 10 ML IV (12:13)
--- NOTE | 2025-08-08 12:36 | PTCARENOTE ---
Patient returned to room 2245 after unsuccessful CV. Remains in A flutter, with HR in the 110's-120's, monitoring VS, call lund in reach. Patient given hospital approved AF and HF education in her ione language which she is reading.
[2025-08-08] MEDS: NOVOLOG FLEXPEN-LOW RESISTANCE SC ×2 (13:30→17:13)
--- NOTE | 2025-08-08 14:15 | CM ---
Chart reviewed. Patient is Wallisian speaking, used patient's iphone to translate and also spoke with the patient's daughter. Patient is independent of ADLS, lives alone in a 2nd floor apartment, elevator access, ambulates with a RW.. Patient has
a BUNCHER OPERATOR who comes into the house 7 hrs a day and a nurse who comes 1x a quarter. Patient uses [facility]. Plan is for the patient to return home. CM to follow
[2025-08-08 17:13] LABS: Glucose - Point of Care 120 mg/dl (70-99)
--- NOTE | 2025-08-08 19:00 | ITS.CL.CARDI ---
Wax Bleacher - Cardioversion
Cardioversion
Procedure Report:
Date of Procedure: 08/08/25
Procedure: Cardioversion vs AT
Indication: Symptomatic atrial flutter
Performing Physician: Vivian aHll DO [facility]
Technique: The patient was brought to the holding area. Phone Representative services were used for informed consent and to speak to patient following procedure. Signed informed consent was obtained. A time out was called and performed. The patient was
anesthetized by the anesthesia service. Anticoagulation status was reviewed and appropriate. R2 pads were placed anteriorly and posteriorly. Synchronized biphasic shocks at 200 J, 300 J, and 360 J with water bottle assist failed to restore sinus
rhythm. Pads were repositioned to anterior and lateral position and a final shock at 150 J briefly converted patient for a couple of sinus beats however failed to restore sustained sinus rhythm. No procedural complications. Postprocedure EKG
remains in atrial tachycardia versus atrial flutter.
Conclusion: Unsuccessful cardioversion attempt
Recommendation: Patient will be returned to her IVU bed for further optimization. Will discuss arrhythmia management with her outpatient bank vault custodian. Continue uninterrupted anticoagulation. Discussed with patient's family over the phone.
[2025-08-08] MEDS: XARELTO 20 MG PO (19:42)
[2025-08-08] MEDS: DULCOLAX 10 MG RECTAL (21:00)
--- NOTE | 2025-08-08 21:41 | PTCARENOTE ---
Received care of pt from day shift, AAOx3. Pt is prydeinig speaking, preferring to use Google translate over the video patent examiner service. Pt reports feeling some weakness but denies and SOB and chest pain. Pt's chest is red from unsuccessful
cardioversion this morning. Pt remains in Aflutter low 100s to 140s with activity. Bp stable, denies any complaints at this time, call lund within reach.
[2025-08-08 22:46] LABS: Glucose - Point of Care 127 mg/dl (70-99)
--- NOTE | 2025-08-08 23:44 | PTCARENOTE ---
assumed care of patient. resting comfortably in bed. independent in the room. suppository given- patient is very happy she was able to have a BM. Aflutter on tele. 100s at rest. increased rates with activity- 130s. bp stable. redness noted on
patients chest and back from zoll pads during CV today. patient states it does not bother her at this time. google translate used to communicate with patient. patient does not like the feather cutting machine feeder phone. call lund within reach. makes needs known.
[2025-08-09 05:31] VITALS: BP 103/91
[2025-08-09 05:35] VITALS: BMI 31.6
[2025-08-09 06:11] LABS: Blood Urea Nitrogen 30 mg/dl (7-17); Calcium 9.7 mg/dl (8.4-10.2); Carbon Dioxide 26 mmol/L (22-30); Chloride 104 mmol/L (98-107); Estimated Creatinine Clearance 48 ml/min; Glucose 136 mg/dl (70-99); Potassium 4.1 mmol/L (3.5-5.1); Sodium 137 mmol/L (135-145); eGFR 52.40
[2025-08-09 08:01] VITALS: BP 118/91
[2025-08-09 08:04] LABS: Glucose - Point of Care 136 mg/dl (70-99)
[2025-08-09] MEDS: CARDIZEM CD 180 MG PO (08:38)
[2025-08-09] MEDS: LASIX 40 MG IV (08:38)
[2025-08-09] MEDS: TOPROL XL 50 MG PO (08:38)
[2025-08-09] MEDS: CRESTOR 10 MG PO (08:38)
[2025-08-09] MEDS: PACERONE 400 MG PO ×2 (08:38→20:00)
[2025-08-09] MEDS: SENOKOT-S 1 TABLET PO ×2 (08:38→19:58)
[2025-08-09] MEDS: FARXIGA 5 MG PO (08:41)
[2025-08-09] MEDS: VIBRAMYCIN 100 MG PO ×2 (08:41→19:58)
[2025-08-09] MEDS: ALDACTONE 25 MG PO (08:41)
[2025-08-09] MEDS: NOVOLOG FLEXPEN-LOW RESISTANCE SC ×3 (08:44→18:08)
--- NOTE | 2025-08-09 10:45 | W.PN.CARDCBS ---
Addendum entered and electronically signed by Vivian Hall DO 08/09/25 12:22:
I saw and examined the patient.
The Knockdown Man's note was reviewed and I agree with the note.
Comment: Patient was seen and examined with cardiac PA. Patient declined use of hospital provided bicycle messenger services and opted to speak with her son Trey over the phone. Patient is anxious overall about her hospitalization but denies chest
pain or pressure. Denies dizziness or lightheadedness. No shortness of breath at rest but does have shortness of breath with ambulation. Overall she states her shortness of breath has improved since this hospitalization. She does have a rash
following second cardioversion but denies itching or pain.
GEN: No distress, awake, alert, oriented x3
HEENT: mmm
LUNGS: CTA B/L, no wheezes/rales
CV: Irreg irreg, S1/S2, no murmur
ABD: soft, BS+, NT/ND
EXT: No edema
NEURO: Gross non-focal
SKIN:Rash consistent with irritation from CV pads.
Plan:
Symptomatic atypical atrial flutter with history of atrial fibrillation/atrial flutter/atrial tachycardia followed by Dr. Negro at [facility] with a prior history of several cardioversions and PVI June 06, 2025
-Unsuccessful cardioversion attempts on 08/05/2025 (200, 300, 360J) and 08/08/2025 (200, 300, 360, and repositioned pads with attempt at 150J)
-Will pursue rate control strategy at this point with no plans for further cardioversion/procedures
-New amiodarone this admission so far with 5600 mg load. Will decrease amiodarone to 400 mg twice daily and decrease to 200 mg twice daily at time of discharge for 2 weeks followed by 200 mg daily
- Continue diltiazem CD 180 mg daily. Continue metoprolol succinate but increase to 75 mg twice daily
- Monitor blood pressure/heart rate trends
-Continue uninterrupted Xarelto
-Patient will follow-up with her contact center agent
Heart failure with preserved ejection fraction in the setting of rapid atrial flutter with proBNP 2530
-Volume status appears better and will discharge on Lasix 20 mg daily [she had previously been on as needed Lasix; May not need Lasix long-term once she is back in sinus rhythm]
-Continue spironolactone 25 mg once daily. Continue Farxiga 5 mg once daily.
-Outpatient losartan discontinued to allow more blood pressure room for rate control.
- Our Cardiac PA provided clinical update to Dr. Montoya's office; their office will reach out to patient to schedule follow-up.
-Discharge planning; possible discharge tomorrow if rates better controlled.
Original Note:
Today's Communication / Plan
-
follow HRs
may need to consider addition of digoxin
reached out to primary EP to update and schedule follow up
transitioned to po lasix
for possible DC in AM
Impression / Plan
-
PCP: Craig Garcia
Bottom Scrubber: Dr. Alicea, but transitioning to Dr. Almanza at [place]
Impression:
Admitted with rapid atrial arrhythmia and wheezing 08/03/2025
Recent admission for rapid A-fib and chest pain 06/07/2025 until 06/08/2025
Elevated troponin
Bronchitis, possible pneumonia
Acute HFpEF
Atypical atrial flutter with RVR
Paroxysmal A-fib with RVR
s/p successful CV 06/2024
s/p successful CV, but followed by rapid recurrence of A-fib 05/2025
s/p PVI 06/06/2025
Recurrence of rapid A-fib treated with Cardizem gtt and spontaneous conversion to SR [facility] ER 06/07/25
Chronic Xarelto OAC
HTN
Echo 06/08/2025: Normal BiV size and function, no WMA, mild aortic regurgitation, moderate MR, mild PHTN
Plan:
- she looks well, however remains in atypical atrial flutter at times with elevated HRs on diltiazem 180mg daily, toprol 50mg BID, amiodarone. she has undergone attempt CV on Sunday 08/05 and Wednesday 08/08 which were unsuccessful.
- thus far she has had a 5600mg load of amiodarone. will decrease to 400mg BID today then decrease to 200mg BID for DC
- may need to consider addition of digoxin to regimen if rates remain refractory, although overall trend is slowly improving
- continue OP xarelto
- transitioned IV lasix to po lasix 20mg daily for DC. was on po lasix 20mg PRN prior to admission. also on daily aldactone
- attempted to use language line however patient declined. discussed with patient's son, Trey via telephone who acted as bicycle messenger.
- Called Dr. Almanza's office and provided clinical update for 4:41. The office will reach out to patient to schedule follow-up
- for possible DC in AM
PREADMIT DATA:
-Patient came to [facility] ER last night with SOB, wheezing and palpitations and was admitted with rapid atrial arrhythmia and elevated troponin, cardiology is now consulted. I talked to the patient using language line nuclear weapons custodian services and patient
reports that she has felt SOB since her ablation at [place] on 06/06/2025, but started with wheezing in the last few days. She has VAN, but is now starting to feel SOB at rest. Patient denies any fevers, chills or cough. Patient felt like she had a
URI with congestion and was using an albuterol inhaler a few times a day at home over the last week. Patient has been feeling more tired than usual and when she was checking her BP at home yesterday the automatic cuff was not working and when she
checked her pulse the HR was fast. Patient came to the ER and her initial ECG looks like SVT with an HR in the 170s. Patient was given adenosine 6 mg IV x 1 with slowing of HR and underlying rhythm appeared to be atrial flutter. Patient then
started on Cardizem gtt and HR improved, but patient does not feel any symptomatic improvement and continues to complain of wheezing. Patient was offered urgent CV in the ER, but declined in favor of cardiology evaluation this morning. Patient was
admitted to the hospitalist service and there was concern for possible acute HF and she was given Lasix 40 mg IV x 1 and reports increased urine output but no improvement in SOB or wheezing. Patient is stable on room air. Patient was initially
diagnosed with A-fib 06/2024 and had successful CV at that time and according to patient and son-in-law there was no recurrence of A-fib until last month, 05/2025. Patient had another successful CV, but recurred with A-fib 3 days later and was
referred for ablation that was performed on 06/06/2025. Ablation was uncomplicated and patient was discharged to home on the same day.
Progress Note - Bottom Scrubber
Subjective
Date of Service: August 09, 2025
no complaints
Objective
Labs:
08/08/25 04:47
08/09/25 05:31
Labs
Hgb 14.7 g/dL (12.0-16.0) 08/08/25 04:47
Hct 43.4 % (37.0-47.0) 08/08/25 04:47
Plt Count 307 10^3/uL (130-400) 08/08/25 04:47
Sodium 137 mmol/L (135-145) 08/09/25 05:31
Potassium 4.1 mmol/L (3.5-5.1) 08/09/25 05:31
BUN 30 mg/dl (7-17) H 08/09/25 05:31
Creatinine 1.1 mg/dL (0.6-1.0) H 08/09/25 05:31
Glucose 136 mg/dl (70-99) H 08/09/25 05:31
Vital Signs and I&O:
Vital Signs
Temp Pulse Resp BP Pulse Ox
97.4 F 88 18 103/91 97
08/09/25 08:07 08/09/25 08:07 08/09/25 08:07 08/09/25 05:31 08/09/25 08:07
Vital Signs
Temp Pulse Resp BP Pulse Ox
97.4 F 88 18 103/91 97
08/09/25 08:07 08/09/25 08:07 08/09/25 08:07 08/09/25 05:31 08/09/25 08:07
Intake & Output
08/07/25 08/08/25 08/09/25 08/10/25
07:59 07:59 07:59 07:59
Intake Total 250 / 250 970 / 970 730 / 730
Balance 250 / 250 970 / 970 730 / 730
Physical Exam
Physical Exam
GEN: No distress, awake, alert, oriented x3
HEENT: supple, anicteric, mmm, eomi
LUNGS: CTA B/L, no wheezes/rales
CV: Irreg irreg, S1/S2, no murmur
ABD: soft, BS+, NT/ND
EXT: No cyanosis, clubbing, edema
NEURO: Gross non-focal
SKIN: Warm, pink, dry. No rash. Rash consistent with irritation from CV pads.
[2025-08-09 11:40] VITALS: BP 107/89
--- NOTE | 2025-08-09 12:21 | CM ---
Chart reviewed. Patient is Cypriot speaking. Patient is independent of ADLS, lives alone in a 2nd floor apartment, elevator access, ambulates with a RW.. Patient has a ASPHALT ENGINEER who comes into the house 7 hrs a day and a nurse who comes 1x a quarter.
Patient uses [facility]. Plan is for the patient to return home. CM to follow
[2025-08-09] MEDS: STERILE WATER FOR INJECTION 10 ML IV (12:31)
[2025-08-09 12:32] LABS: Glucose - Point of Care 125 mg/dl (70-99)
[2025-08-09] MEDS: ROCEPHIN 1000 MG IV (12:32)
--- NOTE | 2025-08-09 16:04 | W.PN.HOSP.TC ---
Today's Communication/Plan
-
Continue current attempt with rate control including amiodarone, metoprolol, diltiazem
Transition to oral Lasix
Assessment / Plan
Assessment / Plan
Impression:
Atypical atrial flutter with rapid ventricular response.
Acute CHF preserved EF decompensated in the settings of a rapid rate
Acute nonischemic myocardial injury in the settings of decompensated CHF/rapid atrial flutter
Acute bronchitis, questionable small left lower lobe pneumonia on imaging
Conditions prior to admission
Paroxysmal atrial fibrillation, status post PVI 06/06/2025 at [facility] with following atypical a flutter
Anticoagulation with Xarelto
Chronic CHF preserved EF
Essential hypertension
Diabetes type 2
Subclinical hypothyroidism
Imaging
Chest x-ray
1. Streaky retrocardiac opacity, which may represent left lower lobe subsegmental atelectasis or early pneumonia.
2. Otherwise clear lungs.
Echo 06/25
1. Normal biventricular size and systolic function, with no regional wall motion abnormalities.
2. Aortic sclerosis with mild regurgitation.
3. Moderate mitral regurgitation.
4. Mild pulmonary hypertension.
5. No prior study available for comparison.
Plan
Atypical a flutter with RVR.
Unsuccessful attempt of DCCV on 08/05
Unsuccessful attempt of DCCV on 08/08 after attempt of amiodarone load
Initiated on amiodarone load on 08/05
Continue metoprolol succinate 50 mg twice daily
Transition off IV Cardizem to oral diltiazem 190 mg daily
If rate control remains suboptimal, consideration of digoxin
Continue anticoagulation with Xarelto
Acute CHF preserved EF exacerbation secondary to rapid A-fib.
Nonischemic myocardial injury with flat troponins
CHF BNP 4570. Unknown baseline
No significant volume overload on exam. Weight close to baseline at 86 kg.
Chest x-ray with no evidence of pulmonary edema upon admission.
Diuresed. Transition to oral Lasix.
Preadmission regimen/GDMT including Toprol-XL, losartan, Farxiga, spironolactone, low intensity statin
Suspected acute bronchitis/possibly early left lower lobe pneumonia on presentation
Afebrile, nontoxic-appearing
Mild nonproductive cough.
Procalcitonin negative
Initiated on empiric antibiotics ceftriaxone/doxycycline.
Plan is to complete 5-day course of antibiotics on 08/09
Type 2 diabetes.
Hemoglobin A1c at 6.8.
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
Basal bolus protocol
Currently euglycemic.
Subclinical hypothyroidism. Mild TSH elevation 5.41 with normal free T4.
Monitor closely once initiated on amiodarone.
Anticipated Discharge: 24 - 48 hours
Subjective/Interval History
-
Date of Service: August 09, 2025
Objective Data
-
Labs:
Laboratory Results
08/09/25
05:31
Sodium 137
Potassium 4.1
Chloride 104
Carbon Dioxide 26
BUN 30 H
Creatinine 1.1 H
Glucose 136 H
Calcium 9.7
Vital Signs:
Vital Signs
Temp Pulse Resp BP Pulse Ox
97.1 F 115 18 107/89 95
08/09/25 12:14 08/09/25 12:14 08/09/25 12:14 08/09/25 11:40 08/09/25 12:14
I&O
08/08/25 08/09/25 08/10/25
06:59 06:59 06:59
Intake Total 970 / 970 730 / 730
Balance 970 / 970 730 / 730
Physical Exam
-
General: Well Developed and No Apparent Distress
HEENT: Normocephalic, Atraumatic and Moist Mucous Membranes
Respiratory: Clear to Auscultation
Cardiac: S1/S2 and Irregular Rhythm; Negative Murmur, Rub or Gallop
GI: Soft, Nontender, Nondistended and Normal Bowel Sounds; Negative Organomegaly
Rectal: Deferred by Provider
Musculoskeletal: No Clubbing, No Cyanosis and No Edema
Skin: Negative Rash
Neuro: Nonfocal/Grossly Intact
[2025-08-09 16:48] VITALS: BP 104/89
--- NOTE | 2025-08-09 17:08 | PTCARENOTE ---
Pt received this am with no c/o of any pain or sob. Remains in Aflutter, rate in the 80 - 120's. Denies any feelings of palpitations. OOB ad zahida in the room. No c/o offered.
[2025-08-09 18:04] LABS: Glucose - Point of Care 129 mg/dl (70-99)
[2025-08-09] MEDS: XARELTO 20 MG PO (19:57)
[2025-08-09 19:58] VITALS: BP 124/95
[2025-08-09] MEDS: TOPROL XL 75 MG PO (19:59)
[2025-08-09] MEDS: SILVADENE 1 APPLIC TOPICAL (20:42)
[2025-08-09 22:14] VITALS: BP 129/98
[2025-08-09 22:14] LABS: Glucose - Point of Care 130 mg/dl (70-99)
[2025-08-10] VITALS (8 sets, daily range): BP systolic 115–136; BP diastolic 75–109
--- NOTE | 2025-08-10 00:06 | PTCARENOTE ---
Received pt @ change of shift. Pt AAOx3, VSS-- Afib/flutter on monitor. OOB in chair. Pt c/o discomfort from CV done earlier in day-- michelle/rash on chest and back. Silvadene ointment ordered and given-- see MAR. Used Ipad crucible furnace tender in room to
discuss plan of care. Pt verbalizes understanding. Plan of care ongoing. Call lund within reach.
[2025-08-10 08:14] LABS: Glucose - Point of Care 145 mg/dl (70-99)
[2025-08-10] MEDS: CRESTOR 10 MG PO (09:01)
[2025-08-10] MEDS: NOVOLOG FLEXPEN-LOW RESISTANCE SC ×2 (09:01→13:12)
[2025-08-10] MEDS: PACERONE 400 MG PO ×2 (09:02→20:43)
[2025-08-10] MEDS: ALDACTONE 25 MG PO (09:02)
[2025-08-10] MEDS: CARDIZEM CD 180 MG PO (09:02)
[2025-08-10] MEDS: FARXIGA 5 MG PO (09:02)
[2025-08-10] MEDS: SENOKOT-S 1 TABLET PO ×2 (09:02→20:43)
[2025-08-10] MEDS: LASIX 20 MG PO (09:02)
[2025-08-10] MEDS: TOPROL XL 75 MG PO ×2 (09:03→20:46)
[2025-08-10] MEDS: SILVADENE 1 APPLIC TOPICAL (09:03)
--- NOTE | 2025-08-10 10:10 | PTCARENOTE ---
Assumed care of the pt @ 0700. Pt is AAOx3 Andorran speaking pt. A fib on the monitor VSS denies cp. Pt's daughter spoke to me on the phone stating that her mom felt nauseous after taking morning meds yesterday. Namrata DILLON aware. Pt is ambulatory in
the room. Call lund within reach.
--- NOTE | 2025-08-10 12:34 | CM ---
Chart reviewed. Patient is Bahamian speaking. Patient is independent of ADLS, lives alone in a 2nd floor apartment, elevator access, ambulates with a RW. Patient has a BINDER AND WRAPPER PACKER who comes into the house 7 hrs a day and a nurse who comes 1x a quarter.
Patient uses [facility]. Plan is for the patient to return home. CM to follow
[2025-08-10 13:02] LABS: Glucose - Point of Care 124 mg/dl (70-99)
--- NOTE | 2025-08-10 13:39 | W.PN.CARDCBS ---
Addendum entered and electronically signed by Viviane Ballard PA-C 08/10/25 14:09:
discussed with son Trey via telephone this afternoon. Patient complained of some nausea earlier today which son states is a problem she has at home as well as takes her pills on an empty stomach. we discussed overall HR trends are improving.
follow overnight with increased diltiazem dosing. will try to have patient eat prior to AM pills moving forward. Son states they plan to follow up with Dr. Almanza immediately post DC however then plan will be to follow up with [facility] as it is
becoming a problem getting patient into the city for care. will provide our information upon DC as requested. hopeful for DC in AM. d/w hospitalist
Original Note:
Today's Communication / Plan
-
Heart rate remains elevated above goal of 110 bpm
Increase diltiazem
Cont metoprolol and amio
Impression / Plan
-
PCP: Craig Garcia
Construction Management Assistant: Dr. Alicea, but transitioning to Dr. Almanza at [place]
Impression:
Admitted with rapid atrial arrhythmia and wheezing 08/03/2025
Recent admission for rapid A-fib and chest pain 06/07/2025 until 06/08/2025
Elevated troponin
Bronchitis, possible pneumonia
Acute HFpEF
Atypical atrial flutter with RVR
Paroxysmal A-fib with RVR
s/p successful CV 06/2024
s/p successful CV, but followed by rapid recurrence of A-fib 05/2025
s/p PVI 06/06/2025
Recurrence of rapid A-fib treated with Cardizem gtt and spontaneous conversion to SR PMDH ER 06/07/25
Chronic Xarelto OAC
HTN
Echo 06/08/2025: Normal BiV size and function, no WMA, mild aortic regurgitation, moderate MR, mild PHTN
Plan:
-Presented with palpitations found to be in rapid atrial flutter on 08/04/2025
-Unsuccessful CVs on Sunday 08/05 and Wednesday 08/08
-Plan is for rate control strategy for now, goal less than 110 bpm
-Unfortunately heart rates have been elevated at times
-Increase diltiazem to 240mg BID
-Continue metoprolol 75 mg twice daily
-Amiodarone 400 mg twice daily for adjunct rate control
-Continue OP xarelto
-Plan for outpatient follow-up with primary senior software developer Dr. Almanza
-Appears euvolemic continue po lasix 20mg daily on discharge
- Discussed with patient's son in law Trey via telephone who acted as visual basic programmer.
PREADMIT DATA:
-Patient came to [facility] ER last night with SOB, wheezing and palpitations and was admitted with rapid atrial arrhythmia and elevated troponin, cardiology is now consulted. I talked to the patient using language line motor vehicle parts interpreter services and patient
reports that she has felt SOB since her ablation at [place] on 06/06/2025, but started with wheezing in the last few days. She has VAN, but is now starting to feel SOB at rest. Patient denies any fevers, chills or cough. Patient felt like she had a
URI with congestion and was using an albuterol inhaler a few times a day at home over the last week. Patient has been feeling more tired than usual and when she was checking her BP at home yesterday the automatic cuff was not working and when she
checked her pulse the HR was fast. Patient came to the ER and her initial ECG looks like SVT with an HR in the 170s. Patient was given adenosine 6 mg IV x 1 with slowing of HR and underlying rhythm appeared to be atrial flutter. Patient then
started on Cardizem gtt and HR improved, but patient does not feel any symptomatic improvement and continues to complain of wheezing. Patient was offered urgent CV in the ER, but declined in favor of cardiology evaluation this morning. Patient was
admitted to the hospitalist service and there was concern for possible acute HF and she was given Lasix 40 mg IV x 1 and reports increased urine output but no improvement in SOB or wheezing. Patient is stable on room air. Patient was initially
diagnosed with A-fib 06/2024 and had successful CV at that time and according to patient and son-in-law there was no recurrence of A-fib until last month, 05/2025. Patient had another successful CV, but recurred with A-fib 3 days later and was
referred for ablation that was performed on 06/06/2025. Ablation was uncomplicated and patient was discharged to home on the same day.
Progress Note - Construction Management Assistant
Subjective
Date of Service: August 10, 2025
No acute overnight events. Patient still experience significant fatigue, dyspnea and palpitations with exertion.
Telemetry reviewed showing atrial flutter/tachycardia with variable conduction overnight and heart rates in the 80s but now higher up into the 120s beats per minute.
Objective
Labs:
08/08/25 04:47
08/09/25 05:31
Labs
Hgb 14.7 g/dL (12.0-16.0) 08/08/25 04:47
Hct 43.4 % (37.0-47.0) 08/08/25 04:47
Plt Count 307 10^3/uL (130-400) 08/08/25 04:47
Sodium 137 mmol/L (135-145) 08/09/25 05:31
Potassium 4.1 mmol/L (3.5-5.1) 08/09/25 05:31
BUN 30 mg/dl (7-17) H 08/09/25 05:31
Creatinine 1.1 mg/dL (0.6-1.0) H 08/09/25 05:31
Glucose 136 mg/dl (70-99) H 08/09/25 05:31
Vital Signs and I&O:
Vital Signs
Temp Pulse Resp BP Pulse Ox
97.3 F 123 18 122/75 96
08/10/25 11:23 08/10/25 11:30 08/10/25 11:23 08/10/25 11:22 08/10/25 11:23
Vital Signs
Temp Pulse Resp BP Pulse Ox
97.3 F 123 18 122/75 96
08/10/25 11:23 08/10/25 11:30 08/10/25 11:23 08/10/25 11:22 08/10/25 11:23
Intake & Output
08/08/25 08/09/25 08/10/25 08/11/25
06:59 06:59 06:59 06:59
Intake Total 970 / 970 730 / 730
Balance 970 / 970 730 / 730
Physical Exam
Physical Exam
Gen: NAD, AA, OOB to chair
HEENT: NC/AT, sclera anicteric
Neck: No JVD
CV: Irregularly irregular, NL s1/s2
Lungs: CTAB
Abd: S/ND
Ext: No LE edema
Skin: Warm, dry
Neuro: Non-focal
--- NOTE | 2025-08-10 13:43 | W.PN.HOSP.TC ---
Today's Communication/Plan
-
Ongoing attempt of rate control
EP evaluation
Assessment / Plan
Assessment / Plan
Impression:
Atypical atrial flutter with rapid ventricular response.
Acute CHF preserved EF decompensated in the settings of a rapid rate
Acute nonischemic myocardial injury in the settings of decompensated CHF/rapid atrial flutter
Acute bronchitis, questionable small left lower lobe pneumonia on imaging
Conditions prior to admission
Paroxysmal atrial fibrillation, status post PVI 06/06/2025 at [facility] with following atypical a flutter
Anticoagulation with Xarelto
Chronic CHF preserved EF
Essential hypertension
Diabetes type 2
Subclinical hypothyroidism
Imaging
Chest x-ray
1. Streaky retrocardiac opacity, which may represent left lower lobe subsegmental atelectasis or early pneumonia.
2. Otherwise clear lungs.
Echo 06/25
1. Normal biventricular size and systolic function, with no regional wall motion abnormalities.
2. Aortic sclerosis with mild regurgitation.
3. Moderate mitral regurgitation.
4. Mild pulmonary hypertension.
5. No prior study available for comparison.
Plan
Atypical a flutter with RVR.
Unsuccessful attempt of DCCV on 08/05
Unsuccessful attempt of DCCV on 08/08 after attempt of amiodarone load
Initiated on amiodarone load on 08/05
Continue metoprolol succinate 50 mg twice daily
Transition off IV Cardizem to oral diltiazem 190 mg daily
If rate control remains suboptimal, consideration of digoxin
Continue anticoagulation with Xarelto
Acute CHF preserved EF exacerbation secondary to rapid A-fib.
Nonischemic myocardial injury with flat troponins
CHF BNP 4570. Unknown baseline
No significant volume overload on exam. Weight close to baseline at 86 kg.
Chest x-ray with no evidence of pulmonary edema upon admission.
Diuresed. Transition to oral Lasix.
Preadmission regimen/GDMT including Toprol-XL, losartan, Farxiga, spironolactone, low intensity statin
Suspected acute bronchitis/possibly early left lower lobe pneumonia on presentation
Afebrile, nontoxic-appearing
Mild nonproductive cough.
Procalcitonin negative
Initiated on empiric antibiotics ceftriaxone/doxycycline.
Plan is to complete 5-day course of antibiotics on 08/09
Type 2 diabetes.
Hemoglobin A1c at 6.8.
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
Basal bolus protocol
Currently euglycemic.
Subclinical hypothyroidism. Mild TSH elevation 5.41 with normal free T4.
Monitor closely once initiated on amiodarone.
Anticipated Discharge: 24 - 48 hours
Subjective/Interval History
-
Date of Service: August 10, 2025
Objective Data
-
Vital Signs:
Vital Signs
Temp Pulse Resp BP Pulse Ox
97.3 F 123 18 122/75 96
08/10/25 11:23 08/10/25 11:30 08/10/25 11:23 08/10/25 11:22 08/10/25 11:23
I&O
08/09/25 08/10/25 08/11/25
06:59 06:59 06:59
Intake Total 730 / 730
Balance 730 / 730
Physical Exam
-
General: Well Developed and No Apparent Distress
HEENT: Normocephalic, Atraumatic and Moist Mucous Membranes
Respiratory: Clear to Auscultation
Cardiac: S1/S2 and Irregular Rhythm; Negative Murmur, Rub or Gallop
GI: Soft, Nontender, Nondistended and Normal Bowel Sounds; Negative Organomegaly
Rectal: Deferred by Provider
Musculoskeletal: No Clubbing, No Cyanosis and No Edema
Skin: Negative Rash
Neuro: Nonfocal/Grossly Intact
[2025-08-10 17:06] LABS: Glucose - Point of Care 191 mg/dl (70-99)
[2025-08-10] MEDS: NOVOLOG FLEXPEN-LOW RESISTANCE 1 UNITS SC (17:35)
[2025-08-10] MEDS: XARELTO 20 MG PO (18:50)
[2025-08-10] MEDS: CARDIZEM CD 240 MG PO (20:43)
[2025-08-10] MEDS: SILVADENE TOPICAL (20:50)
[2025-08-10 22:11] LABS: Glucose - Point of Care 124 mg/dl (70-99)
--- NOTE | 2025-08-11 01:07 | PTCARENOTE ---
Received pt from day shift staff, Aubrey, djiboutian speaking, prefers to use google translate over the keyboarding clerk Ipad. Pt has no complaints of pain or SOB, A-fib on the monitor with HR in the 120s. Pt took increased dose of cardizem tonight and HR
did go down to the 70s. Pt with productive cough, reports clear mucus. Pt is independent in the room, call lund in reach.
[2025-08-11 03:47] VITALS: BP 110/83
[2025-08-11] MEDS: ROBITUSSIN DM 5 ML PO (04:27)
[2025-08-11 04:28] VITALS: BMI 31.6
--- NOTE | 2025-08-11 06:06 | PTCARENOTE ---
Pt. lying in bed, HR in the 60-80's, questionable [place], did EKG to confirm, EKG in the chart.
[2025-08-11 07:41] VITALS: BP 114/72
[2025-08-11 08:18] LABS: Glucose - Point of Care 150 mg/dl (70-99)
--- NOTE | 2025-08-11 08:46 | W.PN.CARDCBS ---
Addendum entered and electronically signed by Colten Jonas MD 08/11/25 09:05:
I saw and examined the patient.
The Trains Dispatcher Supervisor's note was reviewed and I agree with the note.
Comment:
GEN: No distress, awake, Ox3
HEENT: supple, anicteric, mmm
LUNGS: CTA, no wheezes/rales
CV: Irreg, S1/S2, /6 syst LSB, no gallop
ABD: soft, BS+, NT/ND
EXT: No edema
NEURO: Gross non-focal
SKIN: No rash
Plan:
Remains in atrial tachycardia with modestly elevated ventricular rates. Continue amiodarone 400 mg p.o. twice daily. Continue diltiazem
Continue Xarelto
Stable for transfer to [facility] for consideration of ablation with her primary unpaid intern.
Volume status overall looks stable. Continue Farxiga, Lasix 20 mg daily and spironolactone 25 mg daily.
Original Note:
Today's Communication / Plan
-
plan for transfer to [place] for urgent ablation
Impression / Plan
-
PCP: Craig Garcia
Grinder Set Up Operator Centerless: Dr. Alicea, but transitioning to Dr. Almanza at [place]
Impression:
Admitted with rapid atrial arrhythmia and wheezing 08/03/2025
Recent admission for rapid A-fib and chest pain 06/07/2025 until 06/08/2025
Elevated troponin
Bronchitis, possible pneumonia
Acute HFpEF
Atypical atrial flutter with RVR
Paroxysmal A-fib with RVR
s/p successful CV 06/2024
s/p successful CV, but followed by rapid recurrence of A-fib 05/2025
s/p PVI 06/06/2025
Recurrence of rapid A-fib treated with Cardizem gtt and spontaneous conversion to SR PMDH ER 06/07/25
Chronic Xarelto OAC
HTN
Echo 06/08/2025: Normal BiV size and function, no WMA, mild aortic regurgitation, moderate MR, mild PHTN
Plan:
- Presented with palpitations found to be in rapid atrial flutter on 08/04/2025
- loaded with amiodarone
- Unsuccessful CVs on Sunday 08/05 and Wednesday 08/08
- plan was for rate control however this has been proven difficult given refractory HRs despite uptitration of toprol, cardizem in addition to amiodarone. remains in rate controlled aflutter
- After conversations between son-in-law, Trey, and Dr. Almanza's office 08/10, plan for transfer to [place] for urgent ablation
- Continue OP xarelto
- with some wheezing on exam. currently on 20mg po lasix and aldactone 25mg daily. has been diuresed during admission, weight down, and proBNP improved from 4370 to 2530. Cr 1.1 on 08/09. being treated for bronchitis as well
- Discussed with patient's son in law Trey via telephone who acted as notched blade loader. d/w nursing, hospitalist. d/w [place] transfer center
PREADMIT DATA:
-Patient came to [facility] ER last night with SOB, wheezing and palpitations and was admitted with rapid atrial arrhythmia and elevated troponin, cardiology is now consulted. I talked to the patient using language line foreign language interpreter services and patient
reports that she has felt SOB since her ablation at [place] on 06/06/2025, but started with wheezing in the last few days. She has VAN, but is now starting to feel SOB at rest. Patient denies any fevers, chills or cough. Patient felt like she had a
URI with congestion and was using an albuterol inhaler a few times a day at home over the last week. Patient has been feeling more tired than usual and when she was checking her BP at home yesterday the automatic cuff was not working and when she
checked her pulse the HR was fast. Patient came to the ER and her initial ECG looks like SVT with an HR in the 170s. Patient was given adenosine 6 mg IV x 1 with slowing of HR and underlying rhythm appeared to be atrial flutter. Patient then
started on Cardizem gtt and HR improved, but patient does not feel any symptomatic improvement and continues to complain of wheezing. Patient was offered urgent CV in the ER, but declined in favor of cardiology evaluation this morning. Patient was
admitted to the hospitalist service and there was concern for possible acute HF and she was given Lasix 40 mg IV x 1 and reports increased urine output but no improvement in SOB or wheezing. Patient is stable on room air. Patient was initially
diagnosed with A-fib 06/2024 and had successful CV at that time and according to patient and son-in-law there was no recurrence of A-fib until last month, 05/2025. Patient had another successful CV, but recurred with A-fib 3 days later and was
referred for ablation that was performed on 06/06/2025. Ablation was uncomplicated and patient was discharged to home on the same day.
Progress Note - Grinder Set Up Operator Centerless
Subjective
Date of Service: August 11, 2025
no CP. reports feeling tired
Objective
Labs:
08/08/25 04:47
08/09/25 05:31
Labs
Hgb 14.7 g/dL (12.0-16.0) 08/08/25 04:47
Hct 43.4 % (37.0-47.0) 08/08/25 04:47
Plt Count 307 10^3/uL (130-400) 08/08/25 04:47
Sodium 137 mmol/L (135-145) 08/09/25 05:31
Potassium 4.1 mmol/L (3.5-5.1) 08/09/25 05:31
BUN 30 mg/dl (7-17) H 08/09/25 05:31
Creatinine 1.1 mg/dL (0.6-1.0) H 08/09/25 05:31
Glucose 136 mg/dl (70-99) H 08/09/25 05:31
Vital Signs and I&O:
Vital Signs
Temp Pulse Resp BP Pulse Ox
97.3 F 73 20 110/83 96
08/11/25 07:40 08/11/25 05:00 08/11/25 07:40 08/11/25 03:47 08/11/25 07:40
Vital Signs
Temp Pulse Resp BP Pulse Ox
97.3 F 73 20 110/83 96
08/11/25 07:40 08/11/25 05:00 08/11/25 07:40 08/11/25 03:47 08/11/25 07:40
Intake & Output
08/09/25 08/10/25 08/11/25 08/12/25
07:59 07:59 07:59 07:59
Intake Total 730 / 730
Balance 730 / 730
Physical Exam
Physical Exam
GEN: No distress, awake, alert, oriented x3
HEENT: supple, anicteric, mmm, eomi
LUNGS: CTA B/L, no wheezes/rales
CV: Irreg, S1/S2, no murmur
ABD: soft, BS+, NT/ND
EXT: No cyanosis, clubbing, edema
NEURO: Gross non-focal
SKIN: Warm, pink, dry. No rash. Rash consistent with irritation from CV pads.
[2025-08-11 09:33] LABS: Hematocrit 43.0 % (37.0-47.0); Hemoglobin 14.7 g/dL (12.0-16.0); Mean Corp Hgb Conc. 34.2 g/dL (33.0-37.0); Mean Corpuscular Volume 90.3 fL (81.0-99.0); Platelet Count 313 10^3/uL (130-400); Red Cell Dist. Width 12.7 % (11.5-14.5)
[2025-08-11] MEDS: SENOKOT-S 1 TABLET PO (09:37)
[2025-08-11] MEDS: TOPROL XL 75 MG PO (09:37)
[2025-08-11] MEDS: CRESTOR 10 MG PO (09:37)
[2025-08-11] MEDS: ALDACTONE 25 MG PO (09:37)
[2025-08-11] MEDS: PACERONE 400 MG PO (09:37)
[2025-08-11] MEDS: LASIX 20 MG PO (09:38)
[2025-08-11] MEDS: CARDIZEM CD 240 MG PO (09:38)
[2025-08-11] MEDS: FARXIGA 5 MG PO (09:38)
[2025-08-11] MEDS: SILVADENE 1 APPLIC TOPICAL (09:38)
[2025-08-11] MEDS: NOVOLOG FLEXPEN-LOW RESISTANCE 1 UNITS SC (09:38)
[2025-08-11 09:42] VITALS: BP 131/102
[2025-08-11 09:46] LABS: Blood Urea Nitrogen 32 mg/dl (7-17); Calcium 9.7 mg/dl (8.4-10.2); Carbon Dioxide 23 mmol/L (22-30); Chloride 103 mmol/L (98-107); Estimated Creatinine Clearance 48 ml/min; Glucose 136 mg/dl (70-99); Potassium 4.4 mmol/L (3.5-5.1); Sodium 137 mmol/L (135-145); eGFR 52.40
--- NOTE | 2025-08-11 09:58 | PTCARENOTE ---
Assumed care of the pt @0700. Pt is AAOx3 + language barrier. A fib / SR 1st degree avb on the monitor. denies cp. Pt is being transferred to [facility]. Report called to [phone] @[id number] spoke to Otilia LANIER Cath/Cart unit rm [id number].
== END 2025-08-11 11:03 | disposition short-term general hospital (02) | DRG 291 ==
LOC: IVU 05:16
PROVIDERS: General Practice; Internal Medicine; Internal Medicine Cardiovascular Disease; Physician Assistant; Physician Assistant Medical; ADMITTING PHYSICIAN Hospitalist; ATTENDING PHYSICIAN Internal Medicine; EMERGENCY PHYSICIAN Emergency Medicine; FAMILY PHYSICIAN Nurse Practitioner Gerontology; OTHER PHYSICIAN Internal Medicine Cardiovascular Disease
PROC: 5A2204Z Restoration of Cardiac Rhythm, Single (ICD-10-PCS; 2025-08-05)
DX: I11.0 Hypertensive heart disease with heart failure (principal); I50.33 Acute on chronic diastolic (congestive) heart failure; J18.9 Pneumonia, unspecified organism; I48.4 Atypical atrial flutter; I47.19 Other supraventricular tachycardia; I48.0 Paroxysmal atrial fibrillation; E11.9 Type 2 diabetes mellitus without complications; H40.9 Unspecified glaucoma; I27.20 Pulmonary hypertension, unspecified; I5A Non-ischemic myocardial injury (non-traumatic); J20.9 Acute bronchitis, unspecified; E03.9 Hypothyroidism, unspecified; I08.0 Rheumatic disorders of both mitral and aortic valves; Z60.3 Acculturation difficulty; Z79.01 Long term (current) use of anticoagulants; Z79.899 Other long term (current) drug therapy
CPT/HCPCS: 71045; 80048; 80053; 82962; 83036; 83735; 83880; 84145; 84439; 84443; 84484; 85025; 85027; 87502; 87811; 92960; 93005; 94640; J0153